=== PATIENT | female | born 1975 | race Caucasian/White ===

== ENCOUNTER → 2018-09-11 07:31 | Outpatient (CLI) | payer SELFPAY ==
--- NOTE | 2018-09-11 07:35 | BI_ITS ---
MAMMOGRAPHY - BILATERAL SCREENING REASON FOR EXAM: Female, 42 years old. Routine annual screening examination. PERTINENT HISTORY: Non-contributory. TECHNIQUE: Digital bilateral breast francine (3D mammographic acquisition) in the CC and MLO projections. 2-D mediolateral oblique (MLO) and craniocaudad (CC) views of both breasts were obtained. CAD: Full Field Digital Mammography with Computer Added Detection was performed. COMPARISON: Comparison is made with prior outside examination dated November 14, 2011. FINDINGS: Breast Composition: The breasts are extremely dense, which lowers the sensitivity of mammography. There are no dominant masses or suspicious calcifications. Stable small right axillary lymph nodes. No other significant abnormalities are identified. There has been no significant change since the prior study. BI/SCREEN MAMM (CAD) W/FRANCINE BILAT IMPRESSION: Stable bilateral screening mammogram. Yearly follow-up mammogram recommended. (A) ASSESSMENT CATEGORY: BIRADS Category 2: Benign. A letter regarding these results will be sent to the patient by the facility within 30 days. Approximately 10% of breast cancers are not detected by mammography. A normal mammogram should not delay biopsy of a clinically suspicious abnormality. [id number] Electronically Signed: Aguila Harris, at 13:22 EDT , Service support ,
== END ==
PROVIDERS: Family Provider Family Medicine; PCP Family Medicine; Referring Provider Obstetrics & Gynecology Gynecology; Visit Provider Obstetrics & Gynecology Gynecology
DX: Z12.31 Encounter for screening mammogram for malignant neoplasm of breast (principal)
CPT/HCPCS: 77063; 77067

== ENCOUNTER → 2020-06-21 12:01 | Outpatient (CLI) | payer OTHER, SELFPAY ==
[2020-06-21 15:46] LABS: ALB/GLOB Ratio 1.1 RATIO (0.9-2.4); AST(SGOT) 20 U/L (15-37); Alanine Aminotransfer ALT/SGPT 30 U/L (13-56); Albumin, Serum 3.8 g/dL (3.2-5.0); Alkaline Phosphatase 73 U/L (45-117); Anion Gap 6 (5-15); BUN 13 mg/dL (7-18); BUN/Creat Ratio 18.3 RATIO (10-20); Calcium,Total 8.9 mg/dL (8.5-10.1); Chloride 103 mmol/L (98-107); Creatinine, Serum 0.71 mg/dL (0.55-1.02); EST Glomerular Filtration Rate 94 mL/min (>60); Est Glom Filt Rate - Afr Amer 114 mL/min (>60); Follicle Stimulating Hormone 9.4 mIU/mL; Globulin 3.5 g/dL (2.2-4.2); Glucose 78 mg/dL (74-106); Luteinizing Hormone 8.7 mIU/mL; Potassium 3.7 mmol/L (3.5-5.1); Protein, Total 7.3 g/dL (6.4-8.2); Sodium Level 136 mmol/L (136-145); Thyroid Stim Hormone (TSH) 1.28 uIU/mL (0.358-3.74)
== END ==
PROVIDERS: PCP Family Medicine; Visit Provider Family Medicine
DX: R53.81 Other malaise (principal); F41.9 Anxiety disorder, unspecified
CPT/HCPCS: 36415; 80053; 83001; 83002; 84443

== ENCOUNTER → 2020-11-19 08:37 | Outpatient (CLI) | payer OTHER, SELFPAY | PROVIDERS: PCP Family Medicine; Visit Provider Physician Assistant | DX: Z20.822 Contact with and (suspected) exposure to COVID-19 (principal) | CPT/HCPCS: 87635; U0005; U0003 ==

== ENCOUNTER → 2021-02-16 14:36 | Outpatient (CLI) | payer OTHER, SELFPAY ==
--- NOTE | 2021-02-16 14:39 | RAD_ITS ---
STUDY: X-RAY - RIGHT KNEE REASON FOR EXAM: Right knee pain. TECHNIQUE: 4 view(s) of the knee. COMPARISON: Radiograph report 09/15/2009. FINDINGS: Normal visualized distal femur. Normal visualized proximal tibia and fibula. Normal proximal tibiofibular articulation. Normal medial femorotibial compartment. Normal lateral femorotibial compartment. Normal patellofemoral articulation. There is very mild lateral subluxation of the patella. The soft tissue structures are unremarkable. RAD/Knee 4 or More Views IMPRESSION: Very mild lateral subluxation of the patella. Otherwise, unremarkable x-ray examination of the right knee. Electronically Signed: Wilman Lunsford MD at 14:21 EST Tel , Service support ,
--- NOTE | 2021-02-16 14:40 | RAD_ITS ---
STUDY: X-RAY - LUMBAR SPINE REASON FOR EXAM: Female, 45 years old. Back pain. TECHNIQUE: 4 view(s) of the lumbar spine were obtained. COMPARISON: 11/24/2011. FINDINGS: Normal lumbar lordosis. There is no substantial scoliosis. There is a normal alignment of the vertebrae. Mild diffuse facet sclerosis. Mild intervertebral disc space narrowing at L2-3, L3-4 and L5-S1 with small osteophytes, relatively unchanged from the prior study. The soft tissue structures are unremarkable. RAD/L/S Spine Min 4 Views IMPRESSION: Stable mild lumbar spondylosis. No acute abnormality, evidence of erosion or fusion. Electronically Signed: Willy Leonard MD at 11:36 EST , Service support ,
--- NOTE | 2021-02-16 14:42 | RAD_ITS ---
STUDY: X-RAY - LEFT KNEE REASON FOR EXAM: Left knee pain. TECHNIQUE: 4 view(s) of the knee. COMPARISON: Radiograph report 09/15/2009. FINDINGS: Normal visualized distal femur. Normal visualized proximal tibia and fibula. Normal proximal tibiofibular articulation. Normal medial femorotibial compartment. Normal lateral femorotibial compartment. Normal patellofemoral articulation. There is very mild lateral subluxation of the patella. The soft tissue structures are unremarkable. RAD/Knee 4 or More Views IMPRESSION: Very mild lateral subluxation of the patella. Otherwise, unremarkable x-ray examination of the left knee. Electronically Signed: Wilman Lunsford MD at 13:55 EST Tel , Service support ,
== END ==
PROVIDERS: PCP Family Medicine; Referring Provider Family Medicine; Visit Provider Family Medicine
DX: M25.561 Pain in right knee (principal); M25.562 Pain in left knee
CPT/HCPCS: 72110; 73564

== ENCOUNTER 2021-03-30 08:00 | Outpatient (RCR) | payer SELFPAY, OTHER ==
--- NOTE | 2021-03-02 09:30 | HP.PTEVAL_ITS ---
Patient's Visit Information SHANNON GOLDSTEIN is a 45 year old F referred to Physical Therapy by Dr. Chago Rose MD with a diagnosis of Bilateral Sublux Patella. Date of Evaluation: 03/02/21 Physical Therapist: Miroslava Arellano DPT - Visit Plan Frequency: 2-3x /Week Duration: 4 Weeks Plan: Focus on LE and core strength/stabilization. HEP Given IE: Quad set, SLR, 90/90 hamstring stretch, clams, bridge with ball - Subjective Patient reports that she has had knee pain for years but they are getting worse- and her back is bad- she has spondylolysis. The back pain is stable but she reports more pain. Both knees are bad but one is not worse than the other. Pain is located around the whole knee cap- she does have pain right hip pain and reports pulling a muscle- lots of walking on vacation this summer and has not been able to get rid of the pain- massage with Fadia a few times- it gets better then it comes right back. Worst: 7/10 Agg: going down stairs, or down a slope, compression, turning. Eases: Tramadol, heat, CBD cream, sitting still Best: 0/10. Describes the pain as shooting when she is doing things- achy when she is resting after- weather also changes things. Is not working out- is not lifting. Sleep: disturbed- ache gets really bad at night. Hamstrings are really tight- no specific position. Work: [employer] - she is up/down a lot- has other people lifting boxes for her. Can't run or jump. Has had recent x- rays or both knees and her back. PMHx: none Meds: Tramadol, Anti-Inflam, anxiety med - Objective Posture: FH, RS, can correct with verbal and tactile cues but does not maintain. Gait: decreased stance on the right LE with decreased heel/toe pattern. Stairs: asc recip with 1 HR- desc recip with poor control -1 HR. HR/TR: able without UE A. SLS: 20 sec then LOB.- increase muscle activation and pes planus. Sensation: WNL to gross touch bilateral LE. ROM: 0-130 degrees without pain. Strength: core: fair, Hip: 4/5 throughout, Knee: 4+/5, Ankle: 5/5. Poor Patellar Tracking bilateral. Flex: HS: severe, Gastroc: severe Solues: moderate. Palpation: obvious patellar tilting left>Right - Special Tests R Knee Dmitry - Meniscus: Negative R Knee Patellar Apprehension - PFS: Positive R Knee Patellar Grind - PFS: Positive L Knee Dmitry - Meniscus: Negative L Knee Patellar Apprehension - PFS: Positive L Knee Patellar Grind - PFS: Positive L Knee Medial Patellar Plica - Plica Syndrome: Positive - Balance/Special Test Scores Lower Extremity Functional Score: 31 - Goals Goal 1:: Patient will be I with HEP and progression Goal Time Frame: 4-6 Weeks Goal 2:: Patient will report no knee pain for 1 week Goal Time Frame: 4-6 Weeks Goal 3:: Patient will maintain proper posture t/o tx session to demo increased core s/s Goal Time Frame: 4-6 Weeks Goal 4:: Patient will ambulate >300 feet with a normalized gait pattern Goal Time Frame: 4-6 Weeks Goal 5:: Patient will asc/desc 8 stairs recip with 1 HR Goal Time Frame: 4-6 Weeks - Rehabilitation Potential Physical Therapy Diagnosis: Patient presents with hypomobility- she has decreased pain free ROM, LE and core strength/stabilization, flexibility and muscular endurance leading to poor patellar tracking and pain with ADL's Rehabilitation Potential: Good - Anticipated Interventions Patient/Client Instruction: Educate patient on: Benefits of Fitness Program Therapeutic Exercise to Include: Strength training, Endurance training, Balance training, Coordination, Agility training, Body mechanics, Postural training, Flexibilty training, Gait and locomotor training, Neuromotor development, Dynamic Lumbar Stabilization, Scapular Strength/Stabilization For the Purpose of:: To improve muscle performance and motor function TENS: Yes Cryotherapy (ice pack, ice massage): Yes Thermo therapy (hot pack): Yes Ultrasound (thermal/non thermal): Yes Thank you for the opportunity to evaluate your patient. For Medicare and Medicare HMO plans, please review the plan of care and approve it. It will need to be FAXED BACK to us at [phone] for Medicare purposes. For Medicare only, by signing this I certify the plan of care. Please let me know if there are questions or concerns regarding this plan of care. Physician Mayte lindo: Date:
--- NOTE | 2021-03-30 08:52 | HP.PTDCSUM ---
It has been my pleasure to treat SHANNON GOLDSTEIN referred by Dr. Chago Rose MD, with the diagnosis of Bilateral Sublux Patella for a total of 4 visit(s). Discharge Date: Please see the following information for a summary of their discharge status. Subjective: Patient reports that she has not been diligent at home so she is not seeing any big gains % Improvement: 25 Objective/Function: Patient was able to complete without incidence. Able to set up machines indep. Goal 1:: Patient will be I with HEP and progression Goal Progress: Goal Met Goal 2:: Patient will report no knee pain for 1 week Goal Progress: Not Progressing Goal 3:: Patient will maintain proper posture t/o tx session to demo increased core s/s Goal Progress: Not Progressing Goal 4:: Patient will ambulate >300 feet with a normalized gait pattern Goal Progress: Not Progressing Goal 5:: Patient will asc/desc 8 stairs recip with 1 HR Goal Progress: Not Progressing Plan: Discharge. Will continue HEP If there are questions or concerns regarding this patient's physical therapy, please feel free to call me at [phone]. Thank you for the referral of this patient. Sincerely, Miroslava Arellano, DPT Balance/Gait/Functional tests - Balance/Special Test Scores Lower Extremity Functional Score: 50
--- NOTE | 2021-08-24 10:44 | HP.PT.NRP ---
SHANNON RAJWINDER ALCARAZ TRISTON was seen in my office for initial evaluation on 03/02/21. The following Plan of Care was established for this patient: Initial Frequency: 2-3x /Week Initial Duration: 4 Weeks Patient/Client Instruction: Educate patient on: Benefits of Fitness Program Therapeutic Exercise to Include: Strength training, Endurance training, Balance training, Coordination, Agility training, Body mechanics, Postural training, Flexibilty training, Gait and locomotor training, Neuromotor development, Dynamic Lumbar Stabilization, Scapular Strength/Stabilization For the Purpose of:: To improve muscle performance and motor function TENS: Yes Cryotherapy (ice pack, ice massage): Yes Thermo therapy (hot pack): Yes Ultrasound (thermal/non thermal): Yes This patient was last seen in our office . Pertinent comments regarding their Physical therapy will appear below: Patient continues to perform HEP- appropriate to be d/c from PT at this time. At this point I will be discontinuing this patient from physical therapy. I would be happy to see this patient again in the future if found appropriate by the physician. Thank you! Miroslava Arellano DPT Balance/Gait/Functional tests - Balance/Special Test Scores Lower Extremity Functional Score: 50
== END 2021-03-30 19:00 | disposition home or self-care (01) ==
LOC: PT 08:00
PROVIDERS: PCP Family Medicine; Referring Provider Family Medicine; Visit Provider Family Medicine
DX: S83.104D Unspecified dislocation of right knee, subsequent encounter (principal); S83.102D Unspecified subluxation of left knee, subsequent encounter
CPT/HCPCS: 97110; 97162

== ENCOUNTER → 2022-01-23 | Outpatient (CLI) | payer OTHER, SELFPAY ==
[2022-01-23 15:26] LABS: Absolute Lymphocyte Count 3.26 X10^3/uL (0.83-4.51); Absolute Neutrophil Count 3.8 X10^3/uL (2.0-7.7); Basophil# 0.06 X10^3/uL; Basophil% 0.8 % (0-1); Eosinophil# 0.09 X10^3/uL; Eosinophils% 1.2 % (0-5); Hematocrit 42.2 % (37-47); Hemoglobin 14.3 g/dL (12.0-15.0); Lymphocyte # 3.26 X10^3/ul (0.83-4.51); Lymphocyte % 42.4 % (19-41); Mean Corp Hgb Conc 33.9 g/dL (32-36); Mean Corpuscular Hgb 30.4 pg (27.0-32.0); Mean Corpuscular Volume 89.8 fL (81-99); Mean Platelet Vol. 8.6 fl (6.2-12.0); Monocyte# 0.48 X10^3/uL; Monocyte% 6.2 % (0-10); NRBC Flagged by Analyzer 0 % (0-5); Neutrophil # 3.79 X10^3/uL (2.7-7.7); Neutrophil % 49.3 % (47-70); Platelet Count 404 K/mm3 (150-450); RBC Distribution Width CV 11.6 % (11.6-14.6); RBC Distribution Width SD 38.1 fl (35.1-43.9); White Blood Count 7.7 K/mm3 (4.4-11.0)
[2022-01-23 16:05] LABS: ALB/GLOB Ratio 1.3 RATIO (0.9-2.4); AST(SGOT) 16 U/L (15-37); Alanine Aminotransfer ALT/SGPT 26 U/L (13-56); Albumin, Serum 3.9 g/dL (3.2-5.0); Alkaline Phosphatase 73 U/L (45-117); Anion Gap 6 (5-15); BUN 9 mg/dL (7-18); BUN/Creat Ratio 12.3 RATIO (10-20); CRP < 2.90 mg/L (0.0-3.0); Calcium,Total 8.7 mg/dL (8.5-10.1); Chloride 106 mmol/L (98-107); Creatinine, Serum 0.73 mg/dL (0.55-1.02); EST Glomerular Filtration Rate 90 mL/min (>60); Est Glom Filt Rate - Afr Amer 109 mL/min (>60); Globulin 3.1 g/dL (2.2-4.2); Glucose 93 mg/dL (74-106); Lipase 113 U/L (73-393); Potassium 3.9 mmol/L (3.5-5.1); Sodium Level 140 mmol/L (136-145); Thyroid Stim Hormone (TSH) 2.11 uIU/mL (0.358-3.74)
[2022-01-25 17:02] LABS: Haptoglobin 99 mg/dL (42-296)
== END | disposition home or self-care (01) ==
PROVIDERS: PCP Family Medicine; Visit Provider Family Medicine
DX: F50.9 Eating disorder, unspecified (principal); R63.4 Abnormal weight loss; R10.814 Left lower quadrant abdominal tenderness
CPT/HCPCS: 36415; 80053; 83010; 83690; 84443; 85025; 86140

== ENCOUNTER 2022-03-21 06:38 | Day surgery (SDC) | payer OTHER, SELFPAY ==
[2022-03-21] VITALS (7 sets, daily range): BP systolic 96–110; BP diastolic 57–69; PULSE 65–75; RESP 14–18; TEMP 36.4–36.7; O2SAT 99–100; BMI 24.6
--- NOTE | 2022-03-21 06:49 | HP.PCM_ITS ---
History and Physical Date of Admission: 03/21/22 Visit Reasons:?UNEXPLAINED NAUSEA & WEIGHTLOSS Chief Complaint: Nausea and Weight Loss Instructional Developer Required: No Is patient in pain?: No Allergies No Known Allergies Allergy (Unverified 02/09/22 13:14) Medications bupropion HCl 300 mg 24 hr tablet, extended release 300 mg PO QAM 02/09/22 [History Confirmed 02/09/22] methylphenidate HCl 5 mg tablet 5 mg PO QAM 02/09/22 [History Confirmed 02/09/22] tramadol 50 mg tablet 50 mg PO BID 02/09/22 [History Confirmed 02/09/22] PFSH Medical History?(Updated 02/09/22 @ 13:09 by Aniyah Kirk) Encounter for screening for COVID-19 Nausea Weight loss Surgical History?(Updated 02/09/22 @ 13:10 by Aniyah Kirk) No history of previous surgery Family History?(Updated 02/09/22 @ 13:12 by Aniyah Kirk) Mother Arthritis OsteoporosisFather Cancer ?? ? Bladder Social History?(Updated 02/09/22 @ 13:12 by Aniyah Kirk) Smoking Status:? Never smoker alcohol intake:? never substance use type:? does not use HPI HPI HPI: 46-year-old female who is being referred by Dr. Ronn Molina for surgical consultation regarding unexplained nausea and weight loss.? A written compromise surgical consult recommendations will return to him.? Concern is that she has lost 15 to 20 pounds of weight in the past 6 months.? She is on chronic tramadol therapy.? Diminished appetite.? Recorded body weight was 137 pounds with a BMI of 24.6.? As of January 23, 2022 white blood cell count was 7.7 with a hemoglobin 14.3 hematocrit 42.2 platelet count 404,000.? Haptoglobin was normal at 99.? BUN is 9 creatinine 0.73 liver function tests were normal with a total protein of 7 and an albumin of 3.9.? C-reactive protein was normal.? Lipase was 113.? TSH 2.11. The patient notes a 20 pound weight loss over the past 6 months.? She thinks possibly its been due to stress.? She has been taking tramadol on an empty stomach.? She takes tramadol because of knee and back pain and that is been a chronic medication.? She gets nauseated intermittently.? She does drink some Coca-Cola to alleviate this.? She has not tried any antacids or any other rjpj-wma-unapgtm medications. She has not had any change in stool.? No bright red blood per rectum or melena.? No abdominal pain.? Just some indigestion to some food.? She has markedly decreased appetite to where food sounds good but then does not taste good or causes her to be nauseated.? No fever chills or sweats. She does have a dog.? Apparently frequently check for ticks.? She does not have any known exposure for Lyme disease. Family history negative for colon cancer.? Her father did have bladder cancer. The patient is not a tobacco user.? Currently with the weight loss she has had essentially no alcohol use. ROS General General: Yes weight change; No appetite, fatigue, colon cancer, breast cancer or weakness Additional Details: weight loss; 20lbs in last 6 mos per pt HEENT HEENT: No difficulty swallowing, eye injury, eye surgery, swollen glands or hoarseness Endo Endocrine: No thyroid disease, diabetes mellitus, thyroid cancer, Hair loss, heat intolerance or cold intolerance Skin Skin: No rash or changing moles Breast Breast: No left breast lump, right breast lump, nipple discharge, breast pain, abnormal mammogram, abnormal US or breast enlargement Musc Musculoskeletal: Yes back problems and arthritis; No rheumatoid arthritis, gout or joint pain Cardio Cardiovascular: No murmur, pacemaker, heart disease, atrial fibrillation, high blood pressure, heart attack, heart stent, palpitations, shortness of breat with exertion or chest pain Psych Psychiatric: Yes anxiety; No depression or hearing voices Resp Respiratory: No shortness of breath, No sleep apnea, No cough, No COPD, No asthma, No emphysema and No wheezing Gastro Gastrointestinal: Yes abdominal pain, Yes nausea or vomiting, No diarrhea, No constipation, No blood in stool, No acid reflux, No hemorrhoids, No ulcers, No gallbladder problem and No black,tarry stools Additional Details: nausea last 6 wks Kasi Hematologic: No blood thinners, No blood disorders, No bleeding, No anemia and No blood clots Neuro Neurologic: No system reviewed and no additional complaints, except as documented, No as per HPI, No abnormal gait, No abnormal hearing, No abnormal movements, No abnormal speech, No behavioral changes, No burning sensations, No confusion, No convulsions, No disequilibrium, No dizziness, No localized weakness, No frequent falls, No headache(s), No lack of coordination, No loss of vision, No memory loss, No numbness, No other visual disturbances, No radicular pain, No restless legs, No sensory deficit, No syncope, No tingling, No tremor(s), No weakness and No other Exam Const General: cooperative, healthy appearing, comfortable and no acute distress [facility] Head: normal to inspection Eyes General: appearance normal, both eyes and all related structures Neck Neck: normal visual inspection Chest Chest palpation & inspection: normal inspection of the chest Resp Effort & Inspection: normal respiratory effort Auscultation: clear to auscultation bilaterally Cardio Rate: regular rate Rhythm: regular rhythm GI Inspection: normal to inspection Palpation: soft and no hepatosplenomegaly Auscultation: normal bowel sounds Musc Cervical Spine: normal cervical lordosis Skin General: no rashes or lesions noted Neuro General: patient alert, patient awake and patient oriented x3 Extrem General: no calf tenderness Psych Appearance: grossly normal Assessment and Plan Assessment and Plan (1) Nausea: ?Status:?Acute (2) Weight loss: ?Status:?Acute Plan Patient almost is getting to the point where she is having food fear or a nausea response to thinking or eating food.? She has not been taking any aypp-huq-lnentwe medications to assist other than the antiemetic effects of Coca-Cola does assist.? She has continued to take tramadol for long-term knee and back pain.? Her clinical exam is quite unremarkable quadrant unremarkable abdominal exam.? No unusual exposures to think of infectious disease and the patient actually notes that she does not really feel fatigued I recommended the patient a esophagogastroduodenoscopy because of the intractable nausea.? Biopsies will be pursued if indicated.? Because of the weight loss she has never had a colonoscopy and clearly the etiology to her lack of appetite has been undetermined.? I recommend adding a colonoscopy with possible biopsy or polypectomy as well. She has had an opportunity to ask and have questions answered.? If this is not remarkable or revealing to a diagnosis then I would recommend a contrasted abdominal pelvic CT scan.? If that were unremarkable then I might be out of surgical options we will schedule the endoscopy procedures first and then wait findings and then consider further evaluation as indicated. I appreciate the opportunity of assisting with her surgical care Copy: Dr. Ronn Adames M.D., F.A.C.S I have examined the patient and the H&P has been reviewed. There are no clinical changes since date of exam. Ankur Adames M.D., F.A.C.S.
[2022-03-21 07:14] LABS: Internal QC Validated? YES +Cl - CLEAR BKGD; Pregnancy, Urine Negative Negative
[2022-03-21] MEDS: Lactated Ringers 1,000 ML 15 ML IV (07:26)
--- NOTE | 2022-03-21 07:45 | IMM_PTH ---
PATIENT: SHANNON DEL ANGEL LOC: EN U#:[id number] AGE/SX: 46/F ROOM: RE03/21/[address]: Dr. Ankur Adames MD : 1975 BED: DIS: 03/21/2022 SPEC #: [id number] RECD: 03/22/22 07:35 STATUS: LUIS DANIEL REQ #: [id number] STEPHAN: 03/21/22 07:[address]: Ankur Adames DEPT: IMMUNOHISTOCHEMISTRY RECD BY: Amparo Lawson ENTERED: 03/22/22 07:35 SP TYPE: IMMUNO OTHR DR: Dr. Ronn Molina MD Tissues: B - Stomach, NOS Procedures: H Pylori (initial) PHYSICIAN & INSTITUTION [place] [id number] SPECIMEN INFORMATION: Tissue Source: B - Antrum Clinical Info: Nausea, weight loss Specimen Number: [id number] CPT code: 24829 METHODOLOGY: Deparaffinized sections of prefer/formalin-fixed tissue or PAP/DQ stained slides are incubated with monoclonal/polyclonal antibodies/oligonucleotide probes. Localization is made via biotin free immunoperoxidase method. Appropriate controls are performed and reacted as expected. Results on target cell population are indicated in the following table: RESULTS: ANTIBODY / CLONE RESULT Block B H Pylori (polyclonal) negative These tests were developed and their performance characteristics determined by [facility]. They may not have been cleared or approved by the U.S. Food and Drug Administration. The FDA has determined that such clearance or approval is not necessary. The above immunohistochemical/dualISH markers are ordered and reviewed by the Pathologist. INTERPRETATION: B. Antrum, biopsy: Negative for Helicobacter pylori organisms. SJ:varinder 03/22/2022
--- NOTE | 2022-03-21 07:45 | EGD_PTH ---
PATIENT: SHANNON DEL ANGEL LOC: EN U#:[id number] AGE/SX: 46/F ROOM: RE03/21/[address]: Dr. Ankur Adames MD : 1975 BED: DIS: 03/21/2022 SPEC #: [id number] RECD: 03/21/22 09:54 STATUS: LUIS DANIEL REDarshan #: [id number] STEPHAN: 03/21/22 07:[address]: Ankur Adames DEPT: SURGICAL PATHOLOGY RECD BY: Lyssa Mosqueda ENTERED: 03/21/22 11:05 SP TYPE: EGD BIOPSY OT DR: Dr. Ronn Molina MD Tissues: A - Duodenum, NOS B - Gastric mucous membrane C - Esophagus, NOS D - Esophagus, NOS E - Rectum, NOS Procedures: Surgery Specimen Level IV HEADER OPERATION: Colonoscopy, EGD, biopsy ([facility]) PRE-OP DIAGNOSIS: Nausea, weight loss TISSUE SUBMITTED: A ? Duodenum biopsy, B ? Antrum for H. pylori and path, C ? Distal esophagus biopsy, D ? Mid esophagus biopsy, E ? Proximal rectum polyp MICROSCOPIC DIAGNOSIS A. Duodenum, biopsy: A fragment of duodenal mucosa, no pathologic diagnosis. B. Antrum, biopsy: Mild gastritis. See microscopic description and comment. C. Distal esophagus, biopsy: A fragment of squamous epithelium with mild chronic inflammation. D. Mid esophagus, biopsy: Fragments of benign squamous epithelium. E. Proximal rectum polyp, polypectomy: Tubular adenoma. SJ:varinder 03/22/2022 COMMENT B. The results of immunohistochemistry for Helicobacter pylori will be reported separately ([id number]). MICROSCOPIC DESCRIPTION Slides are reviewed. B. The specimen shows fragments of gastric mucosa with chronic inflammatory cell infiltrates in the lamina propria consisting of lymphocytes and plasma cells, consistent with mild chronic gastritis. GROSS DESCRIPTION A - Received in fixative is one container labeled with the patient's name and designated duodenum. The specimen consists of one irregular fragment of light bella soft tissue that measures 0.4 x 0.3 x 0.1 cm. The specimen is totally submitted in one cassette. B - Received in fixative is one container labeled with the patient's name and designated antrum biopsy. The specimen consists of two irregular fragments of light bella soft tissue that in aggregate measure 0.4 x 0.3 x 0.1 cm. The specimen is totally submitted in one cassette. C - Received in fixative is one container labeled with the patient's name and designated distal esophagus. The specimen consists of one irregular fragment of light bella soft tissue that measures 0.5 x 0.3 x 0.1 cm. The specimen is totally submitted in one cassette. D - Received in fixative is one container labeled with the patient's name and designated mid esophagus. The specimen consists of multiple irregular fragments of light bella soft tissue that in aggregate measure 1 x 0.3 x 0.1 cm. The specimen is totally submitted in one cassette. E - Received in fixative is one container labeled with the patient's name and designated proximal rectum polyp. The specimen consists of a bella-pink polyp measuring 1.2 x 1 x 0.6 cm. The presumed base is inked. The polyp is bisected and submitted entirely in one cassette. / SJ:rg 03/21/2021 TC:1 CPT: 52163 x5
--- NOTE | 2022-03-21 08:29 | OP.EGD_ITS ---
Patient Name: Aide Mckeon Procedure Date: 03/21/2022 7:55 AM Date of : 1975 Age: 46 Procedure: Upper GI endoscopy Indications: Nausea, Weight loss Providers: Ankur Adames MD Referring MD: Ankur Adames MD Medicines: See the Anesthesia note for documentation of the administered medications Complications: No immediate complications. Procedure: Pre-Anesthesia Assessment: - Prior to the procedure, a History and Physical was performed, and patient medications and allergies were reviewed. The patient's tolerance of previous anesthesia was also reviewed. The risks and benefits of the procedure and the sedation options and risks were discussed with the patient. All questions were answered, and informed consent was obtained. Prior Anticoagulants: The patient has taken no previous anticoagulant or antiplatelet agents. ASA Grade Assessment: II - A patient with mild systemic disease. After reviewing the risks and benefits, the patient was deemed in satisfactory condition to undergo the procedure. After obtaining informed consent, the endoscope was passed under direct vision. Throughout the procedure, the patient's blood pressure, pulse, and oxygen saturations were monitored continuously. The colonoscope was introduced through the mouth, and advanced to the fourth part of duodenum. The upper GI endoscopy was accomplished without difficulty. The patient tolerated the procedure well. Scope In: 7:59:32 AM Scope Out: 8:07:36 AM Total Procedure Duration Time 0 hours 8 minutes 4 seconds Findings: Diffuse mild mucosal changes characterized by discoloration were found in the entire esophagus. Biopsies were taken with a cold forceps for histology. Diffuse mildly erythematous mucosa without bleeding was found in the gastric antrum. Biopsies were taken with a cold forceps for histology. The examined duodenum was normal. Biopsies were taken with a cold forceps for histology. The examined jejunum was normal. Impression: - Discolored mucosa in the esophagus. Biopsied mid and distally. - Erythematous mucosa in the antrum. Biopsied. - Normal examined duodenum. Biopsied. - Normal examined jejunum. Recommendation: - Await pathology results. - Discharge patient to home. - Resume previous diet. - Continue present medications. - Telephone my office for pathology results in 1 week. Findings do not correlate with intractable nausea and weight loss Procedure Code(s): --- Professional --- 15275, Esophagogastroduodenoscopy, flexible, transoral; with biopsy, single or multiple Diagnosis Code(s): --- Professional --- K22.8, Other specified diseases of esophagus K31.89, Other diseases of stomach and duodenum R11.0, Nausea R63.4, Abnormal weight loss CPT copyright 2017 [employer]. All rights reserved. The codes documented in this report are preliminary and upon teletype clerk review may be revised to meet current compliance requirements. Ankur Adames MD 03/21/2022 8:28:48 AM This report has been signed electronically. Number of Addenda: 0 Note Initiated On: 03/21/2022 7:55 AM
--- NOTE | 2022-03-21 08:29 | OP.CCLET_ITS ---
03/21/2022 Ronn Molina [address] [place] [address] Re : Upper GI endoscopy procedure for Aide Mckeon Dear Dr. Molina This procedure was performed on Monday, March 21, 2022. My impressions and recommendations are as follows: Impressions : - Discolored mucosa in the esophagus. Biopsied mid and distally. - Erythematous mucosa in the antrum. Biopsied. - Normal examined duodenum. Biopsied. - Normal examined jejunum. Recommendations : - Await pathology results. - Discharge patient to home. - Resume previous diet. - Continue present medications. - Telephone my office for pathology results in 1 week. Findings do not correlate with intractable nausea and weight loss My findings are described in the full procedure note, which is enclosed. If I can be of further assistance, please feel free to contact me at Doctor phone number(s): Work: . Sincerely, Ankur Adames MD 03/21/2022 8:28:48 AM This report has been signed electronically.
--- NOTE | 2022-03-21 08:35 | OP.COLON_ITS ---
Patient Name: Aide Mckeon Procedure Date: 03/21/2022 8:07 AM Date of : 1975 Age: 46 Procedure: Colonoscopy Indications: Weight loss Providers: Ankur Adames MD Referring MD: Ankur Adames MD Medicines: See the Anesthesia note for documentation of the administered medications Patient Profile: Last Colonoscopy: none. The patient's first colonoscopy is today. Complications: No immediate complications. Procedure: Pre-Anesthesia Assessment: - Prior to the procedure, a History and Physical was performed, and patient medications and allergies were reviewed. The patient's tolerance of previous anesthesia was also reviewed. The risks and benefits of the procedure and the sedation options and risks were discussed with the patient. All questions were answered, and informed consent was obtained. Prior Anticoagulants: The patient has taken no previous anticoagulant or antiplatelet agents. ASA Grade Assessment: II - A patient with mild systemic disease. After reviewing the risks and benefits, the patient was deemed in satisfactory condition to undergo the procedure. After I obtained informed consent, the scope was passed under direct vision. Throughout the procedure, the patient's blood pressure, pulse, and oxygen saturations were monitored continuously. The colonoscope was introduced through the anus and advanced to the cecum, identified by appendiceal orifice and ileocecal valve. The colonoscopy was performed without difficulty. The patient tolerated the procedure well. The quality of the bowel preparation was good. The ileocecal valve and the appendiceal orifice were photographed. Scope In: 8:09:13 AM Scope Withdrawal Time 0 hours 10 minutes 55 seconds Scope Out: 8:22:43 AM Total Procedure Duration Time 0 hours 13 minutes 30 seconds Findings: The perianal and digital rectal examinations were normal. A 10 mm polyp was found in the rectum. The polyp was semi-pedunculated. The polyp was removed with a hot snare. Resection and retrieval were complete. For location marking, one hemostatic clip was successfully placed. There was no bleeding at the end of the procedure. The exam was otherwise normal throughout the examined colon. Impression: - One 10 mm polyp in the rectum, removed with a hot snare. Resected and retrieved. Clip was placed. Recommendation: - Discharge patient to home. - Resume previous diet. - Continue present medications. - Repeat colonoscopy in 5 years for surveillance based on pathology results. - Telephone my office for pathology results in 1 week. Findings do not correlate with nausea and weight loss Procedure Code(s): --- Professional --- 75359, Colonoscopy, flexible; with removal of tumor(s), polyp(s), or other lesion(s) by snare technique 11940, Unlisted procedure, rectum Diagnosis Code(s): --- Professional --- K62.1, Rectal polyp R63.4, Abnormal weight loss CPT copyright 2017 [employer]. All rights reserved. The codes documented in this report are preliminary and upon auditing coder review may be revised to meet current compliance requirements. Ankur Adames MD 03/21/2022 8:35:05 AM This report has been signed electronically. Number of Addenda: 0 Note Initiated On: 03/21/2022 8:07 AM
--- NOTE | 2022-03-21 08:36 | OP.CCLET_ITS ---
03/21/2022 Ronn Molina [address] [place] [address] Re : Colonoscopy procedure for Aide Francistcher Dear Dr. Molina This procedure was performed on Monday, March 21, 2022. My impressions and recommendations are as follows: Impressions : - One 10 mm polyp in the rectum, removed with a hot snare. Resected and retrieved. Clip was placed. Recommendations : - Discharge patient to home. - Resume previous diet. - Continue present medications. - Repeat colonoscopy in 5 years for surveillance based on pathology results. - Telephone my office for pathology results in 1 week. Findings do not correlate with nausea and weight loss My findings are described in the full procedure note, which is enclosed. If I can be of further assistance, please feel free to contact me at Doctor phone number(s): Work: . Sincerely, Ankur Adames MD 03/21/2022 8:35:05 AM This report has been signed electronically.
== END 2022-03-21 09:11 | disposition home or self-care (01) ==
LOC: EN 06:47 → AC 06:48
PROVIDERS: Anesthesiology; PCP Family Medicine; Referring Provider Surgery; Visit Provider Surgery
PROC: 0DJD8ZZ Inspection of Lower Intestinal Tract, Via Natural or Artificial Opening Endoscopic (ICD-10-PCS; CPT 45378; principal; 2022-03-21 07:40)
DX: K29.70 Gastritis, unspecified, without bleeding (principal); R11.0 Nausea; Z79.891 Long term (current) use of opiate analgesic; Z90.49 Acquired absence of other specified parts of digestive tract; M54.9 Dorsalgia, unspecified; K62.1 Rectal polyp; K31.89 Other diseases of stomach and duodenum; R63.4 Abnormal weight loss; K22.89 Other specified disease of esophagus
CPT/HCPCS: 43239; 45385; 81025; 88305; 88342; J7120; J2405

== ENCOUNTER → 2022-04-03 | Outpatient (CLI) | payer OTHER, SELFPAY ==
--- NOTE | 2022-04-03 13:29 | CT_ITS ---
STUDY: CT ABDOMEN AND PELVIS WITH CONTRAST REASON FOR EXAM: Female, 46 years old. Nausea, unexplained weight loss. Patient lost 20 pounds over the past 6 months. RADIATION DOSAGE (If Supplied By Facility): CTDIvol = ( 14.66 ) mGy, DLP = ( 629.86 ) mGycm TECHNIQUE: Transaxial images were obtained from the dome of the diaphragm to the symphysis pubis with oral contrast. Oral and amp; IV Readi-CAT and amp; 100mL Isovue-300 was administered. Sagittal and coronal images were reconstructed. Individualized dose optimization techniques were used for this CT. COMPARISON: None. FINDINGS: The visualized lung bases are unremarkable. The visualized portions of the heart are within normal limits. There is hepatomegaly with diffuse hepatic enlargement. There are multiple gallstones. Normal spleen. Normal pancreas. Normal bilateral adrenal glands. Normal right kidney. Normal left kidney. Normal visualized stomach. Normal small intestine. Moderate amount of fecal material seen throughout the colon more prominent in the right hemicolon. The appendix is visualized and appears normal. Normal abdominal aorta. Normal inferior vena cava. Normal retroperitoneum. Normal urinary bladder. There is a 2.4 cm x 2.2 cm cyst in the left ovary. Nabothian cyst is seen in the uterine cervix. Findings suggestive of a 1.9 cm x 1.6 cm fundal uterine fibroid. Normal abdominal wall. Grade 1 anterior listhesis of L5 on S1 with spondylolysis of the pars intraarticularis of the L5 vertebrae. CT/Abdomen/Pelvis WITH Contrast IMPRESSION: Multiple gallstones. Hepatomegaly. Left ovarian cyst measuring 2.4 cm x 2.2 cm. Electronically Signed: Aguila Harris MD at 14:17 EST ,
== END | disposition home or self-care (01) ==
PROVIDERS: PCP Family Medicine; Referring Provider Surgery; Visit Provider Surgery
DX: K80.20 Calculus of gallbladder without cholecystitis without obstruction (principal); R16.0 Hepatomegaly, not elsewhere classified; M43.17 Spondylolisthesis, lumbosacral region; N83.202 Unspecified ovarian cyst, left side; R11.0 Nausea; R63.4 Abnormal weight loss
CPT/HCPCS: 74177; Q9967

== ENCOUNTER 2022-04-11 08:58 | Day surgery (SDC) | payer OTHER, SELFPAY ==
--- NOTE | 2022-04-10 08:19 | EKG12_ITS ---
Test Reason : PRE-OP Blood Pressure : / mmHG Vent. Rate : 063 BPM Atrial Rate : 063 BPM P-R Int : 148 ms QRS Dur : 078 ms QT Int : 404 ms P-R-T Axes : 063 045 050 degrees QTc Int : 413 ms Normal sinus rhythm Normal ECG Confirmed by SERGIO SMITH, KAYCEE ([id number]), social media editor IDA MARX ([id number]) on 04/12/2022 2:07:45 PM Referred By: Ankur Adames Confirmed By:KAYCEE HILL MD
[2022-04-10 09:14] LABS: Hematocrit 40.3 % (37-47); Hemoglobin 13.5 g/dL (12.0-15.0); Mean Corp Hgb Conc 33.5 g/dL (32-36); Mean Corpuscular Hgb 29.8 pg (27.0-32.0); Mean Platelet Vol. 8.5 fl (6.2-12.0); Platelet Count 350 K/mm3 (150-450); RBC Distribution Width CV 12.3 % (11.6-14.6); RBC Distribution Width SD 40.2 fl (35.1-43.9); Red Blood Count 4.53 M/mm3 (4.2-5.4); White Blood Count 5.4 K/mm3 (4.4-11.0)
[2022-04-10 09:34] LABS: Anion Gap 4 (5-15); BUN 6 mg/dL (7-18); BUN/Creat Ratio 8.1 RATIO (10-20); Calcium,Total 8.6 mg/dL (8.5-10.1); Chloride 109 mmol/L (98-107); Creatinine, Serum 0.74 mg/dL (0.55-1.02); EST Glomerular Filtration Rate 89 mL/min (>60); Est Glom Filt Rate - Afr Amer 107 mL/min (>60); Glucose 109 mg/dL (74-106); Potassium 4.1 mmol/L (3.5-5.1); Sodium Level 141 mmol/L (136-145)
[2022-04-11] VITALS (10 sets, daily range): BP systolic 115–157; BP diastolic 63–84; PULSE 55–84; RESP 16–18; TEMP 36.3–36.9; O2SAT 95–100; BMI 25.2
[2022-04-11] MEDS: Lactated Ringers 1,000 ML 15 ML IV (09:10)
--- NOTE | 2022-04-11 10:10 | RAD_ITS ---
STUDY: INTRAOPERATIVE CHOLANGIOGRAM. REASON FOR EXAM: Female, 46 years old. Laparoscopic cholecystectomy. FLUOROSCOPY TIME (if supplied): ( 22.4 seconds ) minutes/seconds. A single loop of 90 images were submitted. TECHNIQUE: An intraoperative cholangiogram was performed by the surgeon. Imaging was submitted. COMPARISON: None. FINDINGS: The intra and extrahepatic biliary ducts are unremarkable. No intraluminal filling defect is seen. There is free flow of contrast into the duodenum. RAD/Cholangiogram/ O R,Initial IMPRESSION: Unremarkable intraoperative cholangiogram. Electronically Signed: Aguila Harris MD at 15:36 EST ,
--- NOTE | 2022-04-11 11:02 | HP.PCM_ITS ---
History and Physical Date of Admission: 04/11/22 No Known Allergies Allergy (Verified 04/05/22 13:03) Medications bupropion HCl 300 mg 24 hr tablet, extended release 300 mg PO QAM 02/09/22 [History Confirmed 04/05/22] methylphenidate HCl 5 mg tablet 5 mg PO QAM 02/09/22 [History Confirmed 04/05/22] tramadol 50 mg tablet 50 mg PO BID 02/09/22 [History Confirmed 04/05/22] PFSH Medical History?(Updated 04/05/22 @ 05:[address] Ankur Adames MD) Anxiety Encounter for screening for COVID-19 Nausea Non-smoker Wears glasses Weight loss Surgical History? No history of previous surgery Family History?(Updated 02/09/22 @ 13:12 by Aniyah Kirk) Mother Arthritis OsteoporosisFather Cancer ?? ? Bladder Social History?(Updated 02/09/22 @ 13:12 by Aniyah Kirk) Smoking Status:? Never smoker alcohol intake:? never substance use type:? does not use HPI HPI HPI: 46-year-old female.? She presented to me with unexplained nausea and weight loss. 46-year-old female who is being referred by Dr. Ronn Molina for surgical consultation regarding unexplained nausea and weight loss.? A written compromise surgical consult recommendations will return to him.? Concern is that she has l ost 15 to 20 pounds of weight in the past 6 months.? She is on chronic tramadol therapy.? Diminished appetite.? Recorded body weight was 137 pounds with a BMI of 24.6.? As of January 23, 2022 white blood cell count was 7.7 with a hemoglobin 14.3 hematocrit 42.2 platelet count 404,000.? Haptoglobin was normal at 99.? BUN is 9 creatinine 0.73 liver function tests were normal with a total protein of 7 and an albumin of 3.9.? C-reactive protein was normal.? Lipase was 113.? TSH 2.11. The patient notes a 20 pound weight loss over the past 6 months.? She thinks possibly its been due to stress.? She has been taking tramadol on an empty stomach.? She takes tramadol because of knee and back pain and that is been a chronic medication.? She gets nauseated intermittently.? She does drink some Coca-Cola to alleviate this.? She has not tried any antacids or any other xwwu-hyf-lbagfnk medications On March 21, 2022 I performed a combined esophagogastroduodenoscopy and colonoscopy.? I thought the mucosa of the esophagus appeared slightly discolored.? There is some erythema of the antrum.? These findings did not seem to correlate with the patient's pain.? Pathology demonstrated normal duodenum.? Mild gastritis.? Mild chronic distal esophagitis.? Unremarkable midesophagus.? H. pylori was negative.? The colonoscopy demonstrated a 10 mm polyp in the rectum which was semipedunculated removed with a hot snare and on pathology was a tubular adenoma.? This was also not felt to be the source of her discomfort On April 03, [address] of the abdomen pelvis was obtained.? I have personally reviewed those images.? This demonstrates multiple gallstones and hepatomegaly.? There is an incidental 2.4 cm left ovarian cyst.? It is because of the gallbladder finding that I have asked to return for ongoing surgical consultation.? It is of note that those films also demonstrate significant mount of fecal loading particularly of the cecum ascending and transverse colon.? Moreover I believe that there appears to be some thickening of the gallbladder wall. April 03, 2022 STUDY:? CT ABDOMEN AND PELVIS WITH CONTRAST REASON FOR EXAM: ? Female, 46 years old.? Nausea, unexplained weight loss. Patient lost 20 pounds over the past 6 months. RADIATION DOSAGE (If Supplied By Facility):? CTDIvol = ( 14.66 ) mGy, DLP = ( 629.86 ) mGycm TECHNIQUE: ? Transaxial images were obtained from the dome of the diaphragm to the symphysis pubis with oral contrast. Oral? and amp; IV Readi-CAT? and amp; 100mL Isovue-300 was administered.? Sagittal and coronal images were reconstructed. Individualized dose optimization techniques were used for this CT. COMPARISON: ? None. FINDINGS: The visualized lung bases are unremarkable.? The visualized portions of the heart are within normal limits. There is hepatomegaly with diffuse hepatic enlargement.? There are multiple gallstones.? Normal spleen.? Normal pancreas. Normal bilateral adrenal glands. Normal right kidney.? Normal left kidney. Normal visualized stomach.? Normal small intestine.? Moderate amount of fecal material seen throughout the colon more prominent in the right hemicolon.? The appendix is visualized and appears normal. Normal abdominal aorta.? Normal inferior vena cava.? Normal retroperitoneum. Normal urinary bladder.? There is a 2.4 cm x 2.2 cm cyst in the left ovary. Nabothian cyst is seen in the uterine cervix.? Findings suggestive of a 1.9 cm x 1.6 cm fundal uterine fibroid. Normal abdominal wall.? Grade 1 anterior listhesis of L5 on S1 with spondylolysis of the pars intraarticularis of the L5 vertebrae. CT/Abdomen/Pelvis WITH Contrast IMPRESSION: Multiple gallstones.? Hepatomegaly. Left ovarian cyst measuring 2.4 cm x 2.2 cm. ROS General General: Yes weight change; No appetite, fatigue, colon cancer, breast cancer or weakness Additional Details: weight loss; 20lbs in last 6 mos per pt HEENT HEENT: No difficulty swallowing, eye injury, eye surgery, swollen glands or hoarseness Endo Endocrine: No thyroid disease, diabetes mellitus, thyroid cancer, Hair loss, heat intolerance or cold intolerance Skin Skin: No rash or changing moles Breast Breast: No left breast lump, right breast lump, nipple discharge, breast pain, abnormal mammogram, abnormal US or breast enlargement Musc Musculoskeletal: Yes back problems and arthritis; No rheumatoid arthritis, gout or joint pain Cardio Cardiovascular: No murmur, pacemaker, heart disease, atrial fibrillation, high blood pressure, heart attack, heart stent, palpitations, shortness of breat with exertion or chest pain Psych Psychiatric: Yes anxiety; No depression or hearing voices Resp Respiratory: No shortness of breath, No sleep apnea, No cough, No COPD, No asthma, No emphysema and No wheezing Gastro Gastrointestinal: Yes abdominal pain, Yes nausea or vomiting, No diarrhea, No c onstipation, No blood in stool, No acid reflux, No hemorrhoids, No ulcers, No gallbladder problem and No black,tarry stools Additional Details: nausea last 6 wks Kasi Hematologic: No blood thinners, No blood disorders, No bleeding, No anemia and No blood clots Neuro Neurologic: No system reviewed and no additional complaints, except as documented, No as per HPI, No abnormal gait, No abnormal hearing, No abnormal movements, No abnormal speech, No behavioral changes, No burning sensations, No confusion, No convulsions, No disequilibrium, No dizziness, No localized weakness, No frequent falls, No headache(s), No lack of coordination, No loss of vision, No memory loss, No numbness, No other visual disturbances, No radicular pain, No restless legs, No sensory deficit, No syncope, No tingling, No tremor(s), No weakness and No other Exam Const General: cooperative, comfortable and no acute distress HENMT Head: normal to inspection Eyes General: appearance normal, both eyes and all related structures Neck Neck: normal visual inspection Resp Effort & Inspection: normal respiratory effort Auscultation: clear to auscultation bilaterally Cardio Rate: regular rate Rhythm: regular rhythm GI Palpation: soft and no hepatosplenomegaly Auscultation: normal bowel sounds Musc Cervical Spine: normal cervical lordosis Skin General: no rashes or lesions noted Neuro General: patient alert, patient awake and patient oriented x3 Extrem General: no calf tenderness Psych Appearance: grossly normal Assessment and Plan Assessment and Plan (1) Unexplained weight loss: ?Status:?Acute (2) Nausea: ?Status:?Acute (3) Weight loss: ?Status:?Acute (4) Cholelithiasis with chronic cholecystitis: ?Status:?Chronic ?Plan: The patient presents for a consultative appointment.? I am suspicious that her nausea and potentially weight loss as well is related to chronic cholecystitis cholelithiasis.? As noted above I believe that there is some degree of gallbladder wall thickening on the images.? The upper and lower endoscopy did not have findings that would correlate with her presentation.? I am recommending to her laparoscopic cholecystectomy with selective cholangiography and I have discussed in detail the technique, benefit, risk of alternatives.? She does have larger stones present.? She has had an opportunity to ask and have questions answered.? At this point she is interested in scheduling and proceeding as noted.? I appreciate the opportunity of assisting with her surgical care. Copy: Dr. Ronn Adames M.D., Aaron. I have examined the patient and the H&P has been reviewed. There are no clinical changes since date of exam. Ankur Adames M.D., Adry.[email or web address].DavidS.
--- NOTE | 2022-04-11 11:02 | DCINST_ITS ---
Discharge Instructions Procedure General Surgery Diet Discharge Diet: Light diet - advance as tolerated (if you have questions about your diet instructions, please talk to you doctor.) Activity Discharge Activity: May Not Drive (for 3-5 days or while taking narcotic pain medicine.) May shower in (days): 1 Lifting Restrictions: 10 pounds Dressing / Incision Call your doctor if your incision/area has: Continuous Slow Oozing, Sudden Increased Bleeding, Increased Pain/ Swelling, Increased Redness and Foul Smelling Discharge Call your doctor if you observe: Fever of 101 or Higher Suture Line Care: Avoid Pulling/Pushing and Avoid Pinching/Bending Additional Dressing/Incision Instructions:: Change or remove dressing in 4 days. Leave steri-strips in place for 1 week. Follow Up Care Please Follow Up With: Ankur Adames MD When: Call [phone] to make an appointment to be seen in about 10 days. Test Results: Test results from this visit will be discussed in further detail at your follow- up appointment, if applicable. Discharge Plan Admission Attending Provider: Ankur Adames Primary Care Provider: Ronn Molina Discharge Orders/Prescriptions Prescriptions: No Action tramadol 50 mg tablet 50 mg PO BID methylphenidate HCl 5 mg tablet 5 mg PO QAM bupropion HCl 300 mg tablet extended release 24 hr 300 mg PO QAM Referrals / Follow Up: Ronn Molina MD [Primary Care Provider] - Disposition Disposition (needs filled in before D/C Order can be placed): Home, Self Care
--- NOTE | 2022-04-11 11:10 | GALL_PTH ---
PATIENT: SHANNON DEL ANGEL LOC: [facility] [place][id number] AGE/SX: 46/F ROOM: RE04/11/[address]: Dr. Ankur Adames MD : 1975 BED: DIS: 04/11/2022 SPEC #: [id number] RECD: 04/11/22 16:44 STATUS: LUIS DANIEL ROBLES #: [id number] STEPHAN: 04/11/22 11:[address]: Ankur Adames DEPT: SURGICAL PATHOLOGY RECD BY: Dangelo Irizarry ENTERED: 04/12/22 10:26 SP TYPE: TAMMY ZIMMERMAN DR: Dr. Ronn Molina MD Tissues: Gallbladder, NOS Procedures: Surgery Specimen Level III HEADER OPERATION: Laparoscopic cholecystectomy with IOC PRE-OP DIAGNOSIS: Unexplained weight loss, nausea, cholelithiasis with chronic cholecystitis TISSUE SUBMITTED: Gallbladder and contents MICROSCOPIC DIAGNOSIS Gallbladder, cholecystectomy: Chronic cholecystitis and cholelithiasis. AM:varinder 04/13/2022 MICROSCOPIC DESCRIPTION Slides are reviewed. GROSS DESCRIPTION Received is one container labeled with the patient's name and designated gallbladder and contents. The specimen consists of a gallbladder measuring 12 cm in length and 3 cm in diameter. The external surface is pink-bella, smooth and glistening for the most part. Focally it is granular, hemorrhagic and contains cautery artifact. The gallbladder is distended with green-yellow mucoid bile and contains multiple oth-xhtdcs-ltndk to greenish-black stones measuring in aggregate 6.5 x 6.5 x 1.5 cm and <0.1 to 2 cm in greatest dimension. The mucosa is bile-stained and without any mass lesions. The gallbladder wall measures 0.1 cm in thickness. Dump Truck Operator sections from the gallbladder and the cystic duct are submitted in one cassette. / SJ:varinder 04/12/2022 TC:3 CPT: 23457
[2022-04-11] MEDS: Cefazolin 2 GM in 0.9% Normal Saline 100 ML IV (12:08)
--- NOTE | 2022-04-11 13:28 | OP.PCM_ITS ---
Report of Operation Date of Procedure: 04/11/22 Pre-Operative Diagnosis: Chronic cholecystitis cholelithiasis Post-Operative Diagnosis: Same Laparoscopic identified left inguinal hernia Surgery/Procedure Performed:: Laparoscopic cholecystectomy with cholangiograms Description of Surgical Findings:: Timeout informed consent was obtained. 46-year-old female was taken to the operating placed on table underwent general tracheal ovation esthesia. Ancef 2 g were given intravenously. The abdomen sterilely prepped and draped. 0.5% Marcaine was used as a local anesthetic. Throughout the procedure a total of 30 cc was used. Skin sites were reanesthetized. A vertical infraumbilical incision was created holding sutures of 0 Vicryl placed varies needle inserted saline drop test performed the abdomen was insufflated with CO2 to a pressure of 10 mmHg pressure 10 mm trocar inserted 10 mm laparoscope inserted no evidence of any trocar injuries under direct visualization 5 mm ports were placed in the epigastric right mid upper abdomen right lateral upper abdomen. She was very short wasted. The gallbladder was identified it was distracted blunt dissection was instituted the infundibulum until clearly the cystic artery and cystic duct were identified. 2 Hem-o-anna clips were placed proximally 1 distally on the cystic artery before transecting it Hem-o-anna clip was placed on the cystic duct and incision in the cystic duct and through a 14-gauge Angiocath cholangiogram catheter was inserted. Fluoroscopically controlled cholangiograms were obtained demonstrating normal ductal anatomy and free flow into the small bowel. The ch olangiogram catheter was removed a very secure Hem-o-anna clip was placed on the cystic duct stump prior to transecting it the gallbladder was tediously dissected from the liver bed complete hemostasis was intact there was no spillage. The gallbladder was placed in the retrieval bag. The right upper quadrant was irrigated and aspirated free of excess fluid. Hemostasis was intact. The abdomen was allowed to deflate through an antiviral valve. The gallbladder filled with stones was exited the umbilicus but slightly enlarging the fascial incision. Gallbladder was clinically removed. The abdomen was completely deflated. The fascia was closed with a running suture of 0 Vicryl. Skin edges approximated opted for Monocryl subdermal stitches. Steri-Strips Telfa OpSite dressings and applied. Sponge and instrument and needle counts were reported to the surgeon to be correct. Specimen gallbladder. Drains none. Blood loss minimal. The patient was taken to the recovery area in satisfactory addition without apparent complication It is of note that during a laparoscopic exploration a left inguinal hernia was identified laparoscopically. No similar defect on the right. Ankur Adames M.D., F.A.C.S. Surgeon: Ankur Adames Type of Anesthesia: General Anesthesiologist: Katherine Patricia
--- NOTE | 2022-04-11 14:18 | SUR.PHASEI ---
REPEATEDLY STATES SHE'S STILL HAVING PAIN AFTER MEDICATING, STATES SHE WAS NOT EXPECTING TO HAVE ANY POST-OP PAIN. EVENTUALLY REPORTS SHE'S GOTTEN MINOR IMPROVEMENT FROM MEDICATION. SUPPORT & REASSURANCE, COMFORT MEASURE PROVIDED.
[2022-04-11] MEDS: HYDROcodone Bitartrate/Apap 5/325 Tablet PO (16:00)
[2022-04-11] MEDS: proMETHazine 25 MG/ML Syringe IM (17:04)
== END 2022-04-11 17:42 | disposition home or self-care (01) ==
LOC: SDC 09:00 → AC 09:02
PROVIDERS: PCP Family Medicine; Referring Provider Surgery; Visit Provider Surgery
PROC: (CPT 47610; principal; 2022-04-11 10:50)
DX: K80.10 Calculus of gallbladder with chronic cholecystitis without obstruction (principal); K29.50 Unspecified chronic gastritis without bleeding; D12.8 Benign neoplasm of rectum; K20.90 Esophagitis, unspecified without bleeding; F41.9 Anxiety disorder, unspecified; R63.4 Abnormal weight loss; R16.0 Hepatomegaly, not elsewhere classified; K40.90 Unilateral inguinal hernia, without obstruction or gangrene, not specified as recurrent; N83.202 Unspecified ovarian cyst, left side
CPT/HCPCS: 47563; 00790; 36415; 74300; 76000; 80048; 85027; 88304; 93005; J7120; J2405

== ENCOUNTER 2022-04-14 08:51 | Inpatient (IN) | payer OTHER, SELFPAY ==
[2022-04-14 08:52] VITALS: BP 159/80; PULSE 78; RESP 18; TEMP 36.6; O2SAT 100; BMI 27.8
--- NOTE | 2022-04-14 08:58 | CT_ITS ---
STUDY: CTA CHEST REASON FOR EXAM: Female, 46 years old. Dyspnea -- post op RADIATION DOSAGE (If Supplied By Facility): CTDIvol = ( 9.18 ) mGy, DLP = ( 963.98 ) mGycm TECHNIQUE: The examination was performed with the intravenous administration of IV 75mL Isovue-370. Post-processing of the angiographic images was performed, with multiplanar reformation and 3D reconstruction. Individualized dose optimization techniques were used for this CT. COMPARISON: None. FINDINGS: Normal enhancement of the main pulmonary artery and right and left pulmonary arteries. Normal enhancement of the bilateral peripheral pulmonary arteries. There is no demonstrated pulmonary embolism. Normal thoracic aorta and visualized great vessels. There is no demonstrated aortic dissection. Normal heart and pericardium. Normal mediastinum. Normal hilar regions. Normal visualized trachea and bronchi. The lungs are well expanded. Minimal degree of linear atelectasis at the left lung base. Normal pleura. Normal chest wall structures. Normal osseous structures. Findings suggest a mild degree of hyperplasia of the adrenal glands bilaterally. CT/CTA Chest W/WO Contrast IMPRESSION: Minimal degree of linear atelectasis at the left lung base. No evidence of pulmonary embolism. Electronically Signed: Aguila Harris MD at 10:06 [facility] ,
--- NOTE | 2022-04-14 08:58 | CT_ITS ---
STUDY: CT ABDOMEN AND PELVIS WITH CONTRAST REASON FOR EXAM: Female, 46 years old. Post op pain -- 3 days post op elective cholecystectomy. RADIATION DOSAGE (If Supplied By Facility): CTDIvol = ( 9.18 ) mGy, DLP = ( 963.98 ) mGycm TECHNIQUE: Transaxial images were obtained from the dome of the diaphragm to the symphysis pubis without oral contrast. IV 75mL Isovue-370 was administered. Sagittal and coronal images were reconstructed. Individualized dose optimization techniques were used for this CT. COMPARISON: Comparison is made with prior study dated 04/03/2022. FINDINGS: Minimal degree of linear atelectasis at the left lung base. The visualized portions of the heart are within normal limits. There is a 2.4 cm tiny fluid collection along the anterior lateral aspect of the right lobe of the liver most likely postoperative in nature. No evidence of a subcapsular hematoma. The patient is status post cholecystectomy. Minimal postoperative changes are seen at the gallbladder fossa. Normal spleen. Normal pancreas. Minimal enlargement of the adrenal glands bilaterally. Normal right kidney. Normal left kidney. Normal visualized stomach. Normal small intestine. Normal colon. The appendix is visualized and appears normal. Normal abdominal aorta. Normal inferior vena cava. Normal retroperitoneum. Normal urinary bladder. A small amount of free fluid is seen in the cul-de-sac. The previously seen left ovarian cyst is not distended. Normal abdominal wall. Normal osseous structures. CT/Abdomen/Pelvis W IV Cont ONLY IMPRESSION: The patient is status post cholecystectomy with post operative changes seen in the gallbladder fossa. Minimally dilated central intrahepatic biliary ducts. 2.4 cm fluid collection in the anterior lateral aspect of the serosal surface of the right lobe of the liver most likely postoperative in nature. Small amount of free fluid in the cul-de-sac. The previously seen left ovarian cyst is not seen at this time. Electronically Signed: Aguila Harris MD at 10:10 EST ,
--- NOTE | 2022-04-14 09:03 | EX.ED.DYSGE1 ---
HPI History of Present Illness Chief Complaint: Abd Pain Informant: patient and family Narrative Narrative: Brought in by EMS worsening abdominal pain back pain rating upper chest and neck. She is 3 days postop elective cholecystectomy performed by Dr. Adames. Since then noting some intermittent right back pain thought it was gas. She has had normal bowel movements the last couple days. However today 30 minutes ago significant pain in her abdomen going up her chest and neck. Shortness of breath. No other abdominal surgeries. She is having biliary colic symptoms for months per mother. She has no allergy. Prior similar symptoms: No PFSH PFSH Medical History (Updated 04/14/22 @ 13:[address] Dominguez Figueroa DO) Anxiety Encounter for screening for COVID-19 Nausea Non-smoker Wears glasses Weight loss Home Medications bupropion HCl 300 mg 24 hr tablet, extended release 300 mg PO QAM 02/09/22 [History Last Taken Unknown] methylphenidate HCl 5 mg tablet 5 mg PO QAM 02/09/22 [History Last Taken Unknown] tramadol 50 mg tablet 50 mg PO BID 02/09/22 [History Last Taken Unknown] hydrocodone-acetaminophen 5-325mg 5mg-325mg 1 tab PO Q6H PRN pain 2 days #5 tabs 04/11/22 [Rx Last Taken Unknown] Allergy/AdvReac Type Severity Reaction Status Date / Time No Known Allergies Allergy Verified 04/11/22 09:08 Family History Mother Arthritis Osteoporosis Father Cancer Bladder Surgical History (Updated 04/14/22 @ 13:[address] Dominguez Figueroa DO) History of cholecystectomy Hx of colonoscopy Social History Smoking Status: Never smoker alcohol intake: never substance use type: does not use ROS ROS ED Constitutional Constitutional ED: Denies chills, fever(s) or sweats Eyes Eyes: Denies change in vision ENT ENT ED: Denies sore throat Cardiovascular Cardiovascular: Reports chest pain; Denies leg edema, palpitations or racing heartbeat Respiratory/Chest Respiratory/Chest: Reports dyspnea; Denies cough or dyspnea on exertion Gastrointestinal Gastrointestinal: Reports abdominal pain; Denies diarrhea, nausea or vomiting Genitourinary Genitourinary ED: Denies dysuria, hematuria or urinary frequency Musculoskeletal Musculoskeletal: Denies back pain, extremity pain or neck pain Integumentary Denies rash or wounds Neurologic Neurologic: Denies headache(s), paresthesias or weakness EXAM Physical Exam Const Vital Signs: 04/14/22 08:52 04/14/22 12:07 04/14/22 13:21 Temperature 97.8 F 98 F Temperature Source Oral Temporal Pulse Rate 78 68 65 Respiratory Rate 18 16 16 Blood Pressure 159/80 H 147/78 H 139/81 H Blood Pressure Mean 106 101 100 Pulse Ox 100 99 98 Oxygen Delivery Method Room Air Room Air Room Air Positive well nourished and well developed Constitutional Narrative: Uncomfortable writhing in bed, diaphoretic General Appearance ED: well developed HEENT Reports moist mucous membranes normocephalic and atraumatic Eyes General Eye ED: Yes normal appearance of both eyes Neck no lymphadenopathy and supple General: Negative for tenderness Chest Wall Chest: Negative for tenderness Resp normal respiratory effort and normal air movement Effort and Inspection: symmetric chest movement; Negative for respiratory distress Cardio regular rate, regular rhythm and no murmurs Peripheral Pulses: pulses 2+ throughout GI normal to inspection, nondistended, normoactive bowel sounds GI Narrative: Abdominal dressing to the abdomen clean, dry, intact. Palpation: Negative for guarding or rebound tenderness present Back/Spine no CVA tenderness and no thoracic nor lumbar tenderness Extremity normal to inspection General Extremety ED: Negative for edema or tenderness General Extremity: Negative for edema Neuro oriented x3 and no sensory deficits noted Sensorium / Orientation: awake and alert Skin no rashes or lesions noted and no wounds MDM MDM MDM Narrative Medical decision making narrative: Patient writhing in pain postop abdominal surgery 3 days. Diaphoretic. Reports abdominal chest and neck pain. Differentials postop complications, PE, ACS. IV to be established EKG. We will have PE studies along with CT abdomen pelvis with contrast for evaluation. We will treat for pain in the ED. Laboratory studies White count 12.2 creatinine 0.82 potassium 3.1. Normal lipase and liver enzymes. CT PE study interpreted myself and read by radiology negative for any PE. CT abdomen pelvis resulted notes concerns for 2.4 m fluid collection with pulse Doppler changes. Reevaluation she was feeling better, however with her being postop and significant discomfort I did reach out to her surgeon Dr. Adames, who will evaluate patient in the ED. Patient symptoms pain deep breath pain in the right shoulder concerns for diaphragmatic irritation. The interim additional morphine was given. She was seen by surgery agrees with concerns he okayed giving Toradol help with symptoms. This was given. She was having improvement. Initial plan for potential discharge with NSAIDs with continuing her hydrocodone. However prior to discharge reevaluation pain started returning. Therefore we discussed with Dr. Adames who will admit for symptom control. Patient and family updated. Lab Data Attestation: I reviewed the patient's lab results. Labs: Laboratory Results - last 24 hr 04/14/22 04/14/22 04/14/22 09:05 09:05 09:05 WBC 12.2 H RBC 4.67 Hgb 13.9 Hct 42.8 MCV 91.6 MCH 29.8 MCHC 32.5 RDW Std Deviation 41.6 RDW Coeff of Jewell 12.4 Plt Count 411 MPV 8.7 PT 12.2 INR 0.9 APTT 24.5 Sodium 144 Potassium 3.1 L Chloride 107 Carbon Dioxide 29.0 Anion Gap 8 BUN 9 Creatinine 0.82 Estim Creat Clear Calc 66.36 Est GFR (MDRD) Af Amer 95 Est GFR (MDRD) Non-Af 79 BUN/Creatinine Ratio 10.9 Glucose 121 H Calcium 8.9 Total Bilirubin 0.30 Direct Bilirubin 0.10 AST 32 ALT 42 Alkaline Phosphatase 66 Troponin I High Sens 18 Total Protein 6.9 Albumin 3.5 Globulin 3.4 Lipase 62 L Radiography Diagnostic Testing: Clinical Impression(s) from Imaging Studies Abdomen/Pelvis CT 04/14/22 08:58 IMPRESSION: The patient is status post cholecystectomy with post operative changes seen in the gallbladder fossa. Minimally dilated central intrahepatic biliary ducts. 2.4 cm fluid collection in the anterior lateral aspect of the serosal surface of the right lobe of the liver most likely postoperative in nature. Small amount of free fluid in the cul-de-sac. The previously seen left ovarian cyst is not seen at this time. Electronically Signed: Aguila Hraris MD at 10:10 EST , Chest CTA 04/14/22 08:58 IMPRESSION: Minimal degree of linear atelectasis at the left lung base. No evidence of pulmonary embolism. Electronically Signed: Aguila Harris MD at 10:06 EST , Discharge Plan Dx/Rx/DC Orders Clinical Impression: Postoperative abdominal pain, Abdominal pain, S/P laparoscopic cholecystectomy Disposition Disposition: Acute Care Hospital [facility] Discharge Date/Time: 04/14/22 14:34
[2022-04-14] MEDS: Ondansetron 4 MG/2 ML Vial IV (09:05)
[2022-04-14] MEDS: morphine 10 MG/ML Syringe IV (09:05)
[2022-04-14] MEDS: 0.9% Normal Saline 1,000 ML 150 ML IV (09:06)
[2022-04-14 09:17] LABS: Hematocrit 42.8 % (37-47); Hemoglobin 13.9 g/dL (12.0-15.0); Mean Corp Hgb Conc 32.5 g/dL (32-36); Mean Corpuscular Hgb 29.8 pg (27.0-32.0); Mean Corpuscular Volume 91.6 fL (81-99); Mean Platelet Vol. 8.7 fl (6.2-12.0); Platelet Count 411 K/mm3 (150-450); RBC Distribution Width CV 12.4 % (11.6-14.6); RBC Distribution Width SD 41.6 fl (35.1-43.9); Red Blood Count 4.67 M/mm3 (4.2-5.4); White Blood Count 12.2 K/mm3 (4.4-11.0)
[2022-04-14 09:33] LABS: AST(SGOT) 32 U/L (15-37); Alanine Aminotransfer ALT/SGPT 42 U/L (13-56); Albumin, Serum 3.5 g/dL (3.2-5.0); Alkaline Phosphatase 66 U/L (45-117); Anion Gap 8 (5-15); BUN 9 mg/dL (7-18); BUN/Creat Ratio 10.9 RATIO (10-20); Calcium,Total 8.9 mg/dL (8.5-10.1); Chloride 107 mmol/L (98-107); Creatinine, Serum 0.82 mg/dL (0.55-1.02); EST Glomerular Filtration Rate 79 mL/min (>60); Est Glom Filt Rate - Afr Amer 95 mL/min (>60); Estimated Creatinine Clearance 66.36 ml/min; Globulin 3.4 g/dL (2.2-4.2); Glucose 121 mg/dL (74-106); Lipase 62 U/L (73-393); Potassium 3.1 mmol/L (3.5-5.1); Protein, Total 6.9 g/dL (6.4-8.2); Sodium Level 144 mmol/L (136-145); Troponin-I HS 18 pg/mL (3.0-54.0)
[2022-04-14 09:34] LABS: International Normalized Ratio 0.9; Partial Thromboplast Time 24.5 Seconds (24.1-36.2); Prothrombin Time (Protime)PT. 12.2 SECONDS (11.7-14.9)
[2022-04-14] MEDS: Morphine 4 MG/ML Syringe IV (10:59)
[2022-04-14] MEDS: Ketorolac 30 MG/ML Syringe IV (11:29)
--- NOTE | 2022-04-14 11:36 | PCM.PN.SRG ---
Subjective Subjective Complains of severe abdominal pain. She complains that it is of roving in the abdomen. She states initially it was in the right lower quadrant and in the epigastric area. She complains that she cannot take a deep breath. She is 2 days status post laparoscopic cholecystectomy. I have been asked to see this patient in the emergency room by Dr Dominguez Figueroa. The patient apparently came in in extreme distress. He has worked the patient up. Her vital signs are stable with a normal temperature of 97.8 blood pressure 159/80.. Laboratory notable for white blood cell count of 12.2 with a hemoglobin 13.9 hematocrit 42.8 platelet count 411,000. Her electrolytes normal except for slightly low potassium at 3.1. BUN is normal at 9 creatinine normal at 0.82. Her liver function tests are normal. Her CRP is normal. Lipase is normal even low normal at 62. Because of the patient's severe presentation a CT of the chest was obtained. This shows minimal degree of linear atelectasis left lung base no evidence of pulmonary embolism.. A CT scan was obtained of the abdomen as well. I have reviewed this imaging. Very minimal postoperative changes in the gallbladder bed. Minimally dilated central intrahepatic biliary ducts. 2.4 cm fluid collection anterior lateral aspect of the scrotal surface of the right low liver likely postoperative in nature. Small amount of free fluid in the cul-de-sac. The patient is very anxious. Mildly tachypneic. Taking short choppy breaths. Objective Data Objective Data Vital Signs: Vital Signs Temp Pulse Resp BP Pulse Ox O2 Del Method 97.8 F 78 18 159/80 H 100 Room Air 04/14/22 08:52 04/14/22 08:52 04/14/22 08:52 04/14/22 08:52 04/14/22 08:52 04/14/22 08:52 Oxygen Delivery Method Room Air Weight: 152 lb 1.903 oz Body Mass Index (BMI) 27.8 Lab / Micro Data Result Diagrams: 04/14/22 09:05 04/14/22 09:05 Labs: Laboratory Results - last 24 hr 04/14/22 09:05: WBC 12.2 H, RBC 4.67, Hgb 13.9, Hct 42.8, MCV 91.6, MCH 29.8, MCHC 32.5, RDW Std Deviation 41.6, RDW Coeff of Jewell 12.4, Plt Count 411, MPV 8.7 04/14/22 09:05: PT 12.2, INR 0.9, APTT 24.5 04/14/22 09:05: Sodium 144, Potassium 3.1 L, Chloride 107, Carbon Dioxide 29.0, Anion Gap 8, BUN 9, Creatinine 0.82, Estim Creat Clear Calc 66.36, Est GFR (MDRD) Af Amer 95, Est GFR (MDRD) Non-Af 79, BUN/Creatinine Ratio 10.9, Glucose 121 H, Calcium 8.9, Total Bilirubin 0.30, Direct Bilirubin 0.10, AST 32, ALT 42, Alkaline Phosphatase 66, Troponin I High Sens 18, Total Protein 6.9, Albumin 3.5, Globulin 3.4, Lipase 62 L Radiography Diagnostic Testing: Radiology Impression Abdomen/Pelvis CT 04/14/22 08:58 IMPRESSION: The patient is status post cholecystectomy with post operative changes seen in the gallbladder fossa. Minimally dilated central intrahepatic biliary ducts. 2.4 cm fluid collection in the anterior lateral aspect of the serosal surface of the right lobe of the liver most likely postoperative in nature. Small amount of free fluid in the cul-de-sac. The previously seen left ovarian cyst is not seen at this time. Electronically Signed: Aguila Harris MD at 10:10 EST , Chest CTA 04/14/22 08:58 IMPRESSION: Minimal degree of linear atelectasis at the left lung base. No evidence of pulmonary embolism. Electronically Signed: Aguila Harris MD at 10:06 EST , Physical Exam Narrative Patient appears in acute distress Resp Resp Narrative: Clear but poor respiratory excursion Cardio regular rate and regular rhythm GI GI Narrative: Patient holds her abdomen rigidly but when distracted she is not focally tender Assessment & Plan Assessment/Plan (1) Abdominal pain: PLAN: The patient's presentation of abdominal pain seems out of proportion to clinical findings. My best estimation at this time is some postoperative diaphragmatic irritation from the pneumoperitoneum however admittedly there does not appear to be any significant free air remaining and she has had both a chest and an abdomen CT. We will provide Toradol 30 mg IV to see if we can get clinical improvement. Ankur Adames M.D., F.A.C.S.
[2022-04-14 12:07] VITALS: BP 147/78; PULSE 68; RESP 16; O2SAT 99
[2022-04-14] MEDS: Potassium Chloride Oral Tablet 20 MEQ 40 MEQ PO (12:14)
--- NOTE | 2022-04-14 12:46 | NURSING ---
1230-pt standing in room leaning over bed and reports that feels better standing this way. pt joking now with nurse and not nearly as uncomfortable appearing. reports that toradol much more effective than morphine seemingly. shoulder pain subsided for now since had been up. water given with oral kcl replacement
--- NOTE | 2022-04-14 13:12 | ED.RN ---
1250-pt seen amb st up with posture to br to void and waving and smiling at nurse at brisk pace then 15min later called to room and pt rubbing rt lower quad and leaning over bed saying that pain coming back again and happened after voided and is afraid that if goes home will come back like did this am dr. moseley was just in and will talk with dr. beverly again readressing
[2022-04-14 13:21] VITALS: BP 139/81; PULSE 65; RESP 16; TEMP 36.6; O2SAT 98
--- NOTE | 2022-04-14 13:50 | HP.PCM_ITS ---
HPI - General General Date of Admission: 04/14/22 Date of Service: 04/14/22 Chief Complaint: Postoperative pain HPI Narrative SHANNON GOLDSTEIN, is a 46 F who presents to the emergency room complaining of severe difficulties with breathing and epigastric pain but roving abdominal pain. She is status post a laparoscopic cholecystectomy of April 11, 2022. Findings showed chronic cholecystitis cholelithiasis. Normal cholangiogram. As noted in my previous note information obtained today demonstrates a minimally elevated white count. Liver function test normal lipase normal. CT scan not remarkable. [facility] Medical History (Updated 04/14/22 @ 13:[address] Dominguez Figueroa DO) Anxiety Encounter for screening for COVID-19 Nausea Non-smoker Wears glasses Weight loss Home Medications bupropion HCl 300 mg 24 hr tablet, extended release 300 mg PO QAM 02/09/22 [History Last Taken Unknown] methylphenidate HCl 5 mg tablet 5 mg PO QAM 02/09/22 [History Last Taken Unknown] tramadol 50 mg tablet 50 mg PO BID 02/09/22 [History Last Taken Unknown] hydrocodone-acetaminophen 5-325mg 5mg-325mg 1 tab PO Q6H PRN pain 2 days #5 tabs 04/11/22 [Rx Last Taken Unknown] Allergy/AdvReac Type Severity Reaction Status Date / Time No Known Allergies Allergy Verified 04/11/22 09:08 Family History Mother Arthritis Osteoporosis Father Cancer Bladder Surgical History (Updated 04/14/22 @ 13:[address] Dominguez Figueroa DO) History of cholecystectomy Hx of colonoscopy Social History Smoking Status: Never smoker alcohol intake: never substance use type: does not use Vital Signs Vital Signs Vital Signs: 04/14/22 08:52 04/14/22 12:07 04/14/22 13:21 Temperature 97.8 F 98 F Temperature Source Oral Temporal Pulse Rate 78 68 65 Respiratory Rate 18 16 16 Blood Pressure 159/80 H 147/78 H 139/81 H Blood Pressure Mean 106 101 100 Pulse Ox 100 99 98 Oxygen Delivery Method Room Air Room Air Room Air Weight Weight: 152 lb 1.903 oz Body Mass Index (BMI) 27.8 Physical Exam Const Constitutional Narrative: Patient appears to be in distress. She is tachypneic with diminished respiratory excursion. She is holding her abdomen solid but can be distracted Resp normal respiratory effort Auscultation: clear to auscultation bilaterally GI GI Narrative: Tender abdomen, difficult to evaluate due to patient's voluntary guarding Results Lab / Micro Data Result Diagrams: 04/14/22 09:05 04/14/22 09:05 Labs: Laboratory Results - last 24 hr 04/14/22 09:05: WBC 12.2 H, RBC 4.67, Hgb 13.9, Hct 42.8, MCV 91.6, MCH 29.8, MCHC 32.5, RDW Std Deviation 41.6, RDW Coeff of Jewell 12.4, Plt Count 411, MPV 8.7 04/14/22 09:05: PT 12.2, INR 0.9, APTT 24.5 04/14/22 09:05: Sodium 144, Potassium 3.1 L, Chloride 107, Carbon Dioxide 29.0, Anion Gap 8, BUN 9, Creatinine 0.82, Estim Creat Clear Calc 66.36, Est GFR (MDRD) Af Amer 95, Est GFR (MDRD) Non-Af 79, BUN/Creatinine Ratio 10.9, Glucose 121 H, Calcium 8.9, Total Bilirubin 0.30, Direct Bilirubin 0.10, AST 32, ALT 42, Alkaline Phosphatase 66, Troponin I High Sens 18, Total Protein 6.9, Albumin 3.5, Globulin 3.4, Lipase 62 L Radiology Impression Abdomen/Pelvis CT 04/14/22 08:58 IMPRESSION: The patient is status post cholecystectomy with post operative changes seen in the gallbladder fossa. Minimally dilated central intrahepatic biliary ducts. 2.4 cm fluid collection in the anterior lateral aspect of the serosal surface of the right lobe of the liver most likely postoperative in nature. Small amount of free fluid in the cul-de-sac. The previously seen left ovarian cyst is not seen at this time. Electronically Signed: Aguila Harris MD at 10:10 EST , Chest CTA 04/14/22 08:58 IMPRESSION: Minimal degree of linear atelectasis at the left lung base. No evidence of pulmonary embolism. Electronically Signed: Aguila Harris MD at 10:06 EST , Assessment & Plan Assessment/Plan (1) Postoperative abdominal pain: PLAN: Postoperative abdominal pain of undetermined etiology. The patient's presentation seems out of proportion to objective findings with laboratory and imaging. She was briefly improved with IV Toradol and was suddenly breathing better and then complained of a severe pain causing her to bend over. Etiology to her presentation seems unusual for postop day 3. The patient clearly is uncomfortable with outpatient management. We will admit her for observation. Ankur Adames M.D., F.A.C.S.
[2022-04-14 15:26] VITALS: BMI 19.7
[2022-04-14 15:35] VITALS: BP 143/79; PULSE 60; RESP 18; TEMP 36.7; O2SAT 99
[2022-04-14] MEDS: Lactated Ringers 1,000 ML 100 ML IV (15:51)
--- NOTE | 2022-04-14 16:00 | PCM.PN.SRG ---
Subjective Subjective Patient is now in her room. No current visitors. She does not appear to be in the distress that she was earlier. Demonstrates some signs of mild discomfort. Respirations have normalized. Objective Data Objective Data Vital Signs: Vital Signs Temp Pulse Resp BP Pulse Ox O2 Del Method 98.1 F 60 18 143/79 H 99 Room Air 04/14/22 15:35 04/14/22 15:35 04/14/22 15:35 04/14/22 15:35 04/14/22 15:35 04/14/22 15:55 Oxygen Delivery Method Room Air Weight: 108 lb Body Mass Index (BMI) 19.7 Intake & Output: Intake and Output for Last 24 Hours 04/12/22 04/13/22 04/14/22 23:59 23:59 23:59 Intake Total 1000 / 1000 Balance 1000 / 1000 Lab / Micro Data Result Diagrams: 04/14/22 09:05 04/14/22 09:05 Labs: Laboratory Results - last 24 hr 04/14/22 09:05: WBC 12.2 H, RBC 4.67, Hgb 13.9, Hct 42.8, MCV 91.6, MCH 29.8, MCHC 32.5, RDW Std Deviation 41.6, RDW Coeff of Jewell 12.4, Plt Count 411, MPV 8.7 04/14/22 09:05: PT 12.2, INR 0.9, APTT 24.5 04/14/22 09:05: Sodium 144, Potassium 3.1 L, Chloride 107, Carbon Dioxide 29.0, Anion Gap 8, BUN 9, Creatinine 0.82, Estim Creat Clear Calc 66.36, Est GFR (MDRD) Af Amer 95, Est GFR (MDRD) Non-Af 79, BUN/Creatinine Ratio 10.9, Glucose 121 H, Calcium 8.9, Total Bilirubin 0.30, Direct Bilirubin 0.10, AST 32, ALT 42, Alkaline Phosphatase 66, Troponin I High Sens 18, Total Protein 6.9, Albumin 3.5, Globulin 3.4, Lipase 62 L Radiography Diagnostic Testing: Radiology Impression Abdomen/Pelvis CT 04/14/22 08:58 IMPRESSION: The patient is status post cholecystectomy with post operative changes seen in the gallbladder fossa. Minimally dilated central intrahepatic biliary ducts. 2.4 cm fluid collection in the anterior lateral aspect of the serosal surface of the right lobe of the liver most likely postoperative in nature. Small amount of free fluid in the cul-de-sac. The previously seen left ovarian cyst is not seen at this time. Electronically Signed: Aguila Harris MD at 10:10 EST , Chest CTA 04/14/22 08:58 IMPRESSION: Minimal degree of linear atelectasis at the left lung base. No evidence of pulmonary embolism. Electronically Signed: Aguila Harris MD at 10:06 EST , Physical Exam GI GI Narrative: Soft, very slightly distended, no focal concerning tenderness Assessment & Plan Assessment/Plan (1) Postoperative abdominal pain: PLAN: Patient is on chronic tramadol therapy. Also takes Wellbutrin. She was on methylphenidate. My suspicion is that she has an altered pain tolerance. I also believe there is a degree of complicating anxiety. I will try some Ativan. I encouraged the patient to mobilize. I have instructed her we will repeat lab work in the morning and then I will recheck her. At this time I do anticipate discharge home tomorrow unless new findings occur. Ankur Adames M.D., F.A.C.S.
[2022-04-14] MEDS: LORazepam 1 MG Tablet PO (16:03)
--- NOTE | 2022-04-14 16:03 | DCINST_ITS ---
Discharge Instructions Procedure General Surgery Diet Discharge Diet: Light diet - advance as tolerated (if you have questions about your diet instructions, please talk to you doctor.) Activity Discharge Activity: May Not Drive (for 3-5 days or while taking narcotic pain medicine.) May shower in (days): 1 Lifting Restrictions: 10 pounds Dressing / Incision Call your doctor if your incision/area has: Continuous Slow Oozing, Sudden Increased Bleeding, Increased Pain/ Swelling, Increased Redness and Foul Smelling Discharge Call your doctor if you observe: Fever of 101 or Higher Suture Line Care: Avoid Pulling/Pushing and Avoid Pinching/Bending Additional Dressing/Incision Instructions:: As per previous instructions. Follow-up as previously scheduled. Ankur Adames M.D., F.A.C.S. Follow Up Care Test Results: Test results from this visit will be discussed in further detail at your follow- up appointment, if applicable. Discharge Plan Admission Admit Date/Time: 04/14/22 13:55 Attending Provider: Ankur Adames Primary Care Provider: Ronn Molina Discharge Orders/Prescriptions Prescriptions: No Action tramadol 50 mg tablet 50 mg PO BID methylphenidate HCl 5 mg tablet 5 mg PO QAM bupropion HCl 300 mg tablet extended release 24 hr 300 mg PO QAM hydrocodone-acetaminophen 5-325 mg tablet 1 tab PO Q6H PRN (Reason: pain) 2 Days Qty: 5 0RF Referrals / Follow Up: Ronn Molina MD [Primary Care Provider] -
[2022-04-14 16:38] LABS: Absolute Lymphocyte Count 2.75 X10^3/uL (0.83-4.51); Absolute Neutrophil Count 12.6 X10^3/uL (2.0-7.7); Basophil# 0.06 X10^3/uL; Basophil% 0.4 % (0-1); Eosinophil# 0.01 X10^3/uL; Eosinophils% 0.1 % (0-5); Hematocrit 39.4 % (37-47); Hemoglobin 13.1 g/dL (12.0-15.0); Lymphocyte # 2.75 X10^3/ul (0.83-4.51); Lymphocyte % 16.5 % (19-41); Mean Corp Hgb Conc 33.2 g/dL (32-36); Mean Corpuscular Hgb 30.3 pg (27.0-32.0); Mean Corpuscular Volume 91.2 fL (81-99); Mean Platelet Vol. 8.6 fl (6.2-12.0); Monocyte# 1.14 X10^3/uL; Monocyte% 6.8 % (0-10); NRBC Flagged by Analyzer 0 % (0-5); Neutrophil # 12.61 X10^3/uL (2.7-7.7); Neutrophil % 75.7 % (47-70); Platelet Count 357 K/mm3 (150-450); RBC Distribution Width CV 12.3 % (11.6-14.6); RBC Distribution Width SD 41.4 fl (35.1-43.9); Red Blood Count 4.32 M/mm3 (4.2-5.4); White Blood Count 16.7 K/mm3 (4.4-11.0)
[2022-04-14] MEDS: HYDROmorphone 1 MG/ML Syringe IV (19:35)
[2022-04-14 20:00] VITALS: BP 177/93; PULSE 73; RESP 18; TEMP 37.4; O2SAT 99
[2022-04-14] MEDS: traMADol 50 MG Tablet PO (20:51)
[2022-04-15] VITALS (12 sets, daily range): BP systolic 110–147; BP diastolic 58–81; PULSE 65–86; RESP 16–18; TEMP 36.3–37.3; O2SAT 96–99
[2022-04-15] MEDS: HYDROmorphone 1 MG/ML Syringe IV ×3 (00:14→11:13)
[2022-04-15] MEDS: 0.9% Saline Lock 10 ML Syringe IV ×3 (00:14→08:26)
[2022-04-15] MEDS: Lactated Ringers 1,000 ML 100 ML IV ×2 (00:18→10:09)
[2022-04-15] MEDS: Ondansetron 4 MG/2 ML Vial IV (02:56)
[2022-04-15] MEDS: HYDROcodone Bitartrate/Apap 5/325 Tablet PO (02:57)
[2022-04-15 05:44] LABS: Absolute Lymphocyte Count 2.81 X10^3/uL (0.83-4.51); Absolute Neutrophil Count 11.6 X10^3/uL (2.0-7.7); Basophil# 0.04 X10^3/uL; Basophil% 0.3 % (0-1); Eosinophil# 0.02 X10^3/uL; Eosinophils% 0.1 % (0-5); Hematocrit 40.8 % (37-47); Hemoglobin 13.1 g/dL (12.0-15.0); Lymphocyte # 2.81 X10^3/ul (0.83-4.51); Lymphocyte % 17.9 % (19-41); Mean Corp Hgb Conc 32.1 g/dL (32-36); Mean Corpuscular Hgb 29.5 pg (27.0-32.0); Mean Corpuscular Volume 91.9 fL (81-99); Mean Platelet Vol. 8.7 fl (6.2-12.0); Monocyte# 1.17 X10^3/uL; Monocyte% 7.4 % (0-10); NRBC Flagged by Analyzer 0 % (0-5); Neutrophil % 73.7 % (47-70); Platelet Count 374 K/mm3 (150-450); RBC Distribution Width CV 12.2 % (11.6-14.6); RBC Distribution Width SD 40.9 fl (35.1-43.9); Red Blood Count 4.44 M/mm3 (4.2-5.4); White Blood Count 15.7 K/mm3 (4.4-11.0)
[2022-04-15 06:22] LABS: AST(SGOT) 111 U/L (15-37); Alanine Aminotransfer ALT/SGPT 116 U/L (13-56); Albumin, Serum 3.2 g/dL (3.2-5.0); Alkaline Phosphatase 103 U/L (45-117); Anion Gap 5 (5-15); BUN 7 mg/dL (7-18); BUN/Creat Ratio 11.1 RATIO (10-20); Calcium,Total 8.6 mg/dL (8.5-10.1); Chloride 104 mmol/L (98-107); Creatinine, Serum 0.63 mg/dL (0.55-1.02); EST Glomerular Filtration Rate 107 mL/min (>60); Est Glom Filt Rate - Afr Amer 130 mL/min (>60); Estimated Creatinine Clearance 84.45 ml/min; Globulin 3.3 g/dL (2.2-4.2); Glucose 117 mg/dL (74-106); Potassium 4.3 mmol/L (3.5-5.1); Protein, Total 6.5 g/dL (6.4-8.2); Sodium Level 138 mmol/L (136-145)
--- NOTE | 2022-04-15 06:53 | PCM.PN.SRG ---
Subjective Subjective Patient still very uncomfortable Objective Data Objective Data Vital Signs: Vital Signs Temp Pulse Resp BP Pulse Ox O2 Del Method 99.1 F 65 16 134/81 H 98 Room Air 04/15/22 03:00 04/15/22 03:00 04/15/22 03:00 04/15/22 03:00 04/15/22 03:00 04/15/22 03:00 Oxygen Delivery Method Room Air Weight: 108 lb Body Mass Index (BMI) 19.7 Intake & Output: Intake and Output for Last 24 Hours 04/13/22 04/14/22 04/15/22 23:59 23:59 23:59 Intake Total 1000 / 1000 845 / 845 Balance 1000 / 1000 845 / 845 Lab / Micro Data Result Diagrams: 04/15/22 05:22 04/15/22 05:22 Labs: Laboratory Results - last 24 hr 04/14/22 09:05: WBC 12.2 H, RBC 4.67, Hgb 13.9, Hct 42.8, MCV 91.6, MCH 29.8, MCHC 32.5, RDW Std Deviation 41.6, RDW Coeff of Jewell 12.4, Plt Count 411, MPV 8.7 04/14/22 09:05: PT 12.2, INR 0.9, APTT 24.5 04/14/22 09:05: Sodium 144, Potassium 3.1 L, Chloride 107, Carbon Dioxide 29.0, Anion Gap 8, BUN 9, Creatinine 0.82, Estim Creat Clear Calc 66.36, Est GFR (MDRD) Af Amer 95, Est GFR (MDRD) Non-Af 79, BUN/Creatinine Ratio 10.9, Glucose 121 H, Calcium 8.9, Total Bilirubin 0.30, Direct Bilirubin 0.10, AST 32, ALT 42, Alkaline Phosphatase 66, Troponin I High Sens 18, Total Protein 6.9, Albumin 3.5, Globulin 3.4, Lipase 62 L 04/14/22 16:25: WBC 16.7 H, RBC 4.32, Hgb 13.1, Hct 39.4, MCV 91.2, MCH 30.3, MCHC 33.2, RDW Std Deviation 41.4, RDW Coeff of Jewell 12.3, Plt Count 357, MPV 8.6, Immature Gran % (Auto) 0.500, Neut % (Auto) 75.7 H, Lymph % (Auto) 16.5 L, [place] % (Auto) 6.8, Eos % (Auto) 0.1, Baso % (Auto) 0.4, Absolute Neuts (auto) 12.6 H, Absolute Lymphs (auto) 2.75, Nucleated RBC % 0 04/15/22 05:22: Sodium 138, Potassium 4.3, Chloride 104, Carbon Dioxide 29.0, Anion Gap 5, BUN 7, Creatinine 0.63, Estim Creat Clear Calc 84.45, Est GFR (MDRD) Af Amer 130, Est GFR (MDRD) Non-Af 107, BUN/Creatinine Ratio 11.1, Glucose 117 H, Calcium 8.6, Total Bilirubin 0.70, AST 111 H, ALT 116 H, Alkaline Phosphatase 103, Total Protein 6.5, Albumin 3.2, Globulin 3.3, Albumin/Globulin Ratio 1.0 04/15/22 05:22: WBC 15.7 H, RBC 4.44, Hgb 13.1, Hct 40.8, MCV 91.9, MCH 29.5, MCHC 32.1, RDW Std Deviation 40.9, RDW Coeff of Jewell 12.2, Plt Count 374, MPV 8.7, Immature Gran % (Auto) 0.600, Neut % (Auto) 73.7 H, Lymph % (Auto) 17.9 L, [place] % (Auto) 7.4, Eos % (Auto) 0.1, Baso % (Auto) 0.3, Absolute Neuts (auto) 11.6 H, Absolute Lymphs (auto) 2.81, Nucleated RBC % 0 Radiography Diagnostic Testing: Radiology Impression Abdomen/Pelvis CT 04/14/22 08:58 IMPRESSION: The patient is status post cholecystectomy with post operative changes seen in the gallbladder fossa. Minimally dilated central intrahepatic biliary ducts. 2.4 cm fluid collection in the anterior lateral aspect of the serosal surface of the right lobe of the liver most likely postoperative in nature. Small amount of free fluid in the cul-de-sac. The previously seen left ovarian cyst is not seen at this time. Electronically Signed: Aguila Harris MD at 10:10 EST , Chest CTA 04/14/22 08:58 IMPRESSION: Minimal degree of linear atelectasis at the left lung base. No evidence of pulmonary embolism. Electronically Signed: Aguila Harris MD at 10:06 EST , Physical Exam GI GI Narrative: Patient holding abdomen bending over clearly in discomfort Assessment & Plan Assessment/Plan (1) Postoperative abdominal pain: PLAN: Plan Hepatocellular liver function tests have elevated. I am strongly suspicious of a bile leak. Other etiology would be duct obstruction but the cholangiogram did not demonstrate any intraluminal filling defects. I have personally discussed her condition with Dr. Dominguez Lemos. He is willing to proceed with ERCP for diagnosis and definitive treatment. I certainly appreciate his assistance. While awaiting operating room time I would obtain a right upper quadrant ultrasound looking for fluid or potentially common duct distention. Ankur Adames M.D., F.A.C.S.
--- NOTE | 2022-04-15 07:00 | US_ITS ---
HISTORY: suspected bile leak -- HX OF CHOLECYSTECTOMY 04/12/22 WITH PAIN SINCE SURGERY. TECHNIQUE: Mayes scale and color doppler imaging was performed of the right upper quadrant. 67 images. COMPARISON: CT prior day. FINDINGS: LIVER: 18.6 cm in length. Homogeneous echotexture without focal lesion demonstrated. Borderline intrahepatic ductal dilatation. Mild perihepatic free fluid. MAIN PORTAL VEIN: Patent with hepatopedal flow. COMMON BILE DUCT: 5 mm in diameter. GALLBLADDER: Surgically absent. PANCREAS: Visualized proximal pancreas unremarkable with a 2 mm pancreatic duct. RIGHT KIDNEY: 11.2 cm in length with a cortical thickness of 1.5 cm. No hydronephrosis or gross renal mass demonstrated. US/Gallbladder IMPRESSION: Mild postoperative perihepatic free fluid or ascites. Consider correlation with scintigraphy if there is clinical suspicion for bile leak. Mild hepatomegaly. Cholecystectomy with borderline intrahepatic biliary dilatation. Electronically Signed: Sue Darden MD at 9:58 EST ,
--- NOTE | 2022-04-15 07:07 | PN_ITS ---
Progress Note The patient presented 3 days after laparoscopic cholecystectomy with extreme pain. She is still having lower abdominal and right upper quadrant pain. Dr. Adames has a high suspicion for a bile leak. Her LFTs did slightly increased today. I was consulted for ERCP. I discussed ERCP with the patient in detail. I discussed stent placement and bile leak with her in detail as well. I discussed the risks of the procedure such as bleeding, infection, perforation the bile duct or bowel, pancreatitis. Patient understands the risks and is willing to proceed with ERCP with stent placement. Emigdio Lemos MD Pager: [facility] [address] [place] [address], [address] [place] [address] Office:
--- NOTE | 2022-04-15 09:30 | CASEMGMT ---
DARREN DUGGAN DC Planning Assessment: Face to Face with patient for initial transition planning/care coordination assessment. Pt alert, sitting in the chair, oriented x4. DARREN DUGGAN introduced self and role at [facility], pt voices understanding and agreeable to participating in assessment with at chairside.? Care providers, pharmacy,?and demographics verified. ? Admitting Dx: postop pain, biliary leak PCP: Jesse Specialists: Rosangela Walton Pharmacy: [facility] Insurance: MMO Prescription Benefit:?Yes Living Will/HPOA: None LNOK: Cassandra Living Arrangements: Pt resides with her in a one story home with 4-5 steps to enter. Pt reports to be independent with ADLs including self care and household tasks. Transportation: pt drives and is able to drive is pt unable. DME/HHC/SNF: denies ? Plan: Pt plans to return home at discharge with spouse's support. Both deny any needs or concerns at this time. Will continue to monitor and assist with DC Planning needs as identified. Ila Tate RN CM
[2022-04-15] MEDS: Methylphenidate HCl 5 MG Tablet PO (10:07)
[2022-04-15] MEDS: traMADol 50 MG Tablet PO ×2 (10:08→21:19)
[2022-04-15] MEDS: proMETHazine 25 MG/ML Syringe 12.5 MG IM (10:08)
[2022-04-15] MEDS: buPROPion (XL) 300 MG TABLET.XL PO (10:14)
--- NOTE | 2022-04-15 10:14 | RAD_ITS ---
INDICATION: ABD PAIN EXAMINATION/TECHNIQUE: Images assigned to this order were provided in conjunction with a ERCP procedure performed in the operating room/procedural suite. Please see operative report for details. Fluoroscopic images: 6 Fluoroscopic time: 1 minute 28 seconds Cumulative dose: NA, mGym2; 18.5; mGy COMPARISON: No relevant comparisons available.. FINDINGS: There is documentation retrograde access to the lower ductal system. Apparent balloon sweep was performed, and placement of a biliary stent projecting in normal position. Refer to procedure note for further details. RAD/ERCP Biliary/Pancreas IMPRESSION: ERCP examination documented placement of a biliary stent in normal position. Electronically Signed: Paul Pandya MD at 17:30 EST ,
--- NOTE | 2022-04-15 12:34 | OP.CCLET_ITS ---
04/15/2022 Ronn Molina [address] [facility] [address] [place] [address] Re : ERCP procedure for Aidemaryam Francistcher Dear Dr. Molina This procedure was performed on Friday, April 15, 2022. My impressions and recommendations are as follows: Impressions : - A biliary sphincterotomy was performed. - One plastic stent was placed into the common bile duct. - A bile leak was found. Recommendations : - Return patient to hospital cook for ongoing care. My findings are described in the full procedure note, which is enclosed. If I can be of further assistance, please feel free to contact me at Doctor phone number(s): , Work: . Sincerely, Emigdio Lemos MD 04/15/2022 12:33:06 PM This report has been signed electronically.
--- NOTE | 2022-04-15 12:34 | OP.ERCP_ITS ---
Patient Name: Aide Mckeon Procedure Date: 04/15/2022 11:44 AM Date of : 1975 Age: 46 Procedure: ERCP Indications: Bile leak Providers: Emigdio Lemos MD Medicines: Monitored Anesthesia Care Patient Profile: This is a 46 year old female. Refer to note in patient chart for documentation of history and physical. Complications: No immediate complications. Procedure: Pre-Anesthesia Assessment: - Prior to the procedure, a History and Physical was performed, and patient medications and allergies were reviewed. The patient's tolerance of previous anesthesia was also reviewed. The risks and benefits of the procedure and the sedation options and risks were discussed with the patient. All questions were answered, and informed consent was obtained. Prior Anticoagulants: The patient has taken no previous anticoagulant or antiplatelet agents. After reviewing the risks and benefits, the patient was deemed in satisfactory condition to undergo the procedure. After obtaining informed consent, the scope was passed under direct vision. Throughout the procedure, the patient's blood pressure, pulse, and oxygen saturations were monitored continuously. The Duodenoscope was introduced through the mouth, and advanced to the duodenum and used to inject contrast into the bile duct. The ERCP was accomplished without difficulty. The patient tolerated the procedure well. Scope In: 11:54:38 AM Scope Withdrawal Time 0 hours 0 minutes 1 second Scope Out: 12:17:22 PM Total Procedure Duration Time 0 hours 22 minutes 44 seconds Findings: A 0.035 inch x 260 cm straight Dreamwire was passed into the biliary tree. The sphincterotome was passed over the guidewire and the bile duct was then deeply cannulated. Contrast was injected. I personally interpreted the bile duct images. Biliary sphincterotomy was made with a monofilament sphincterotome using ERBE electrocautery. Balloon was placed into bile duct and cholanigiogram was performed. There was a bile leak from a small biliary radical into the gallbladder fossa. There was no post-sphincterotomy bleeding. One 10 Fr by 5 cm plastic stent with a single external flap and a single internal flap was placed into the common bile duct. Bile flowed through the stent. The stent was in good position. Impression: - A biliary sphincterotomy was performed. - One plastic stent was placed into the common bile duct. - A bile leak was found. Recommendation: - Return patient to hospital cook for ongoing care. Procedure Code(s): --- Professional --- 83498, Endoscopic retrograde cholangiopancreatography (ERCP); with placement of endoscopic stent into biliary or pancreatic duct, including pre- and post-dilation and guide wire passage, when performed, including sphincterotomy, when performed, each stent Diagnosis Code(s): --- Professional --- K83.9, Disease of biliary tract, unspecified K83.8, Other specified diseases of biliary tract CPT copyright 2017 [employer]. All rights reserved. The codes documented in this report are preliminary and upon mmi teacher review may be revised to meet current compliance requirements. Emigdio Lemos MD 04/15/2022 12:33:06 PM This report has been signed electronically. Number of Addenda: 0 Note Initiated On: 04/15/2022 11:44 AM
[2022-04-15 14:26] LABS: Color, Urine Yellow (Yellow); Glucose, Dipstick Normal (Normal); Ketone-Dipstick Negative (Negative); Leukocyte Esterase-Dipstick Negative /ul (Negative); Nitrite-Dipstick Negative (Negative); Occult Blood-Urine 10 /ul (Negative); Protein-Dipstick Negative (Negative); Specific Gravity, Urine 1.005 (1.002-1.030); Urine Bilirubin Dipstick Negative (Negative); Urine Clarity Clear (Clear); Urine Urobilinogen Normal (Normal)
[2022-04-15] MEDS: LORazepam 1 MG Tablet PO (21:19)
[2022-04-16] MEDS: Lactated Ringers 1,000 ML 100 ML IV (00:46)
[2022-04-16 01:34] VITALS: BP 102/55; PULSE 89; RESP 16; TEMP 37.2; O2SAT 96
[2022-04-16 06:49] LABS: Absolute Lymphocyte Count 2.19 X10^3/uL (0.83-4.51); Basophil# 0.03 X10^3/uL; Basophil% 0.3 % (0-1); Eosinophil# 0.12 X10^3/uL; Eosinophils% 1.3 % (0-5); Hematocrit 33.5 % (37-47); Lymphocyte # 2.19 X10^3/ul (0.83-4.51); Lymphocyte % 23.7 % (19-41); Mean Corp Hgb Conc 32.8 g/dL (32-36); Mean Corpuscular Hgb 29.7 pg (27.0-32.0); Mean Corpuscular Volume 90.5 fL (81-99); Monocyte# 0.85 X10^3/uL; Monocyte% 9.2 % (0-10); NRBC Flagged by Analyzer 0 % (0-5); Neutrophil # 5.99 X10^3/uL (2.7-7.7); Platelet Count 294 K/mm3 (150-450); RBC Distribution Width CV 12.2 % (11.6-14.6); RBC Distribution Width SD 40.7 fl (35.1-43.9); White Blood Count 9.2 K/mm3 (4.4-11.0)
--- NOTE | 2022-04-16 07:06 | PCM.PN.SRG ---
Subjective Subjective It is tremendously better. She states she feels 100%. Objective Data Objective Data Vital Signs: Vital Signs Temp Pulse Resp BP Pulse Ox O2 Del Method 99.0 F 89 16 102/55 L 96 Room Air 04/16/22 01:34 04/16/22 01:34 04/16/22 01:34 04/16/22 01:34 04/16/22 01:34 04/16/22 01:34 Oxygen Delivery Method Room Air Weight: 108 lb Body Mass Index (BMI) 19.7 Intake & Output: Intake and Output for Last 24 Hours 04/14/22 04/15/22 04/16/22 23:59 23:59 23:59 Intake Total 1000 / 1000 3680 / 3680 Balance 1000 / 1000 3680 / 3680 Lab / Micro Data Result Diagrams: 04/16/22 05:25 04/15/22 05:22 Labs: Laboratory Results - last 24 hr 04/15/22 01:15: Urine Color Yellow, Urine Clarity Clear, Urine pH 7.0, Ur Specific [place] 1.005, Urine Protein Negative, Urine Glucose (UA) Normal, Urine Ketones Negative, Urine Occult Blood 10 H, Urine Nitrite Negative, Urine Bilirubin Negative, Urine Urobilinogen Normal, Ur Leukocyte Esterase Negative 04/16/22 05:25: WBC 9.2, RBC 3.70 L, Hgb 11.0 L, Hct 33.5 L, MCV 90.5, MCH 29.7, MCHC 32.8, RDW Std Deviation 40.7, RDW Coeff of Jewell 12.2, Plt Count 294, MPV 9.0, Immature Gran % (Auto) 0.500, Neut % (Auto) 65.0, Lymph % (Auto) 23.7, [place] % (Auto) 9.2, Eos % (Auto) 1.3, Baso % (Auto) 0.3, Absolute Neuts (auto) 6.0, Absolute Lymphs (auto) 2.19, Nucleated RBC % 0 Radiography Diagnostic Testing: Radiology Impression Gallbladder Ultrasound 04/15/22 07:00 IMPRESSION: Mild postoperative perihepatic free fluid or ascites. Consider correlation with scintigraphy if there is clinical suspicion for bile leak. Mild hepatomegaly. Cholecystectomy with borderline intrahepatic biliary dilatation. Electronically Signed: Sue Darden MD at 9:58 EST , Endo Retro Cholangiopancreatogram 04/15/22 10:14 IMPRESSION: ERCP examination documented placement of a biliary stent in normal position. Electronically Signed: Pual Pandya MD at 17:30 EST , Physical Exam GI GI Narrative: Abdomen soft, nontender Assessment & Plan Assessment/Plan (1) Bile leak from gallbladder bed: PLAN: Bile leak from duct of fluoroscopic gallbladder bed. Symptoms resolved with Dr. Dominguez Lemos's ERCP with stent placement. Patient ready for discharge. Ankur Adames M.D., F.A.C.S.
--- NOTE | 2022-04-16 07:07 | EX.PCM.DISCH ---
Discharge Instructions Diet Discharge Diet: Light diet - advance as tolerated (if you have questions about your diet instructions, please talk to you doctor.) Activity May shower in (days): 1 Dressing / Incision Call your doctor if your incision/area has: Continuous Slow Oozing, Sudden Increased Bleeding, Increased Pain/ Swelling, Increased Redness and Foul Smelling Discharge Call your doctor if you observe: Fever of 101 or Higher Suture Line Care: Avoid Pulling/Pushing and Avoid Pinching/Bending Additional Dressing/Incision Instructions:: As per previous instructions. Follow-up as previously scheduled. Ankur Adames M.D., F.A.C.S. Follow Up Care Test Results: Resume previous discharge instructions and diet Plan follow-up with Dr. Dominguez Lemos approximately 6 weeks Continue with your scheduled office follow-up appointment with myself Ankur Adames Discharge Plan Admission Admit Date/Time: 04/15/22 07:00 Attending Provider: Ankur Adames Primary Care Provider: Ronn Molina Discharge Orders/Prescriptions Prescriptions: No Action tramadol 50 mg tablet 50 mg PO BID methylphenidate HCl 5 mg tablet 5 mg PO QAM bupropion HCl 300 mg tablet extended release 24 hr 300 mg PO QAM hydrocodone-acetaminophen 5-325 mg tablet 1 tab PO Q6H PRN (Reason: pain) 2 Days Qty: 5 0RF Referrals / Follow Up: Ronn Molina MD [Primary Care Provider] -
[2022-04-16 07:17] LABS: ALB/GLOB Ratio 0.8 RATIO (0.9-2.4); AST(SGOT) 102 U/L (15-37); Alanine Aminotransfer ALT/SGPT 145 U/L (13-56); Albumin, Serum 2.5 g/dL (3.2-5.0); Alkaline Phosphatase 137 U/L (45-117); Anion Gap 6 (5-15); BUN 7 mg/dL (7-18); BUN/Creat Ratio 13.3 RATIO (10-20); Calcium,Total 8.3 mg/dL (8.5-10.1); Chloride 108 mmol/L (98-107); Creatinine, Serum 0.53 mg/dL (0.55-1.02); EST Glomerular Filtration Rate 132 mL/min (>60); Est Glom Filt Rate - Afr Amer 159 mL/min (>60); Estimated Creatinine Clearance 100.39 ml/min; Glucose 93 mg/dL (74-106); Lipase 100 U/L (73-393); Potassium 3.8 mmol/L (3.5-5.1); Protein, Total 5.5 g/dL (6.4-8.2); Sodium Level 141 mmol/L (136-145)
--- NOTE | 2022-04-16 07:30 | PCM.DC.SUM ---
Providers Date of Admission: 04/15/22 Primary Care Physician: Dr. Ronn Molina MD Reason For Visit: POSTOP PAIN Diagnosis Discharge Diagnosis (1) Bile leak from gallbladder bed: Status: Acute Code(s): K83.8 - Other specified diseases of biliary tract Plan: Bile leak from duct of fluoroscopic gallbladder bed. Symptoms resolved with Dr. Dominguez Lemos's ERCP with stent placement. Patient ready for discharge. Ankur Adames M.D., F.A.C.S. Medications at Discharge Home Medications bupropion HCl 300 mg 24 hr tablet, extended release 300 mg PO QAM 02/09/22 methylphenidate HCl 5 mg tablet 5 mg PO QAM 02/09/22 tramadol 50 mg tablet 50 mg PO BID 02/09/22 hydrocodone-acetaminophen 5-325mg 5mg-325mg 1 tab PO Q6H PRN pain 2 days #5 tabs 04/11/22 Hospital Course Summary of Care Provided Hospital Course: The patient was readmitted status post laparoscopic cholecystectomy with cute onset of abdominal pain. Initially CT scan laboratory was not remarkable. Follow-up attention however demonstrated slight elevation in liver function tests in some mild fluid noted on right upper quadrant ultrasound. I consulted Dr. Dominguez Lemos who performed ERCP with biliary stent. A small ductal structure in the bed of the gallbladder consistent with a duct of Luschka was noted to be leaking. With placement of the stent the patient's symptoms dramatically resolved. Weight / BMI Weight Weight: 108 lb Body Mass Index (BMI) 19.7 ABG / Lab / Microbiology Data Result Diagrams: 04/16/22 05:25 04/16/22 05:25 Laboratory: Laboratory Results - last 24 hr 04/15/22 01:15: Urine Color Yellow, Urine Clarity Clear, Urine pH 7.0, Ur Specific [place] 1.005, Urine Protein Negative, Urine Glucose (UA) Normal, Urine Ketones Negative, Urine Occult Blood 10 H, Urine Nitrite Negative, Urine Bilirubin Negative, Urine Urobilinogen Normal, Ur Leukocyte Esterase Negative 04/16/22 05:25: WBC 9.2, RBC 3.70 L, Hgb 11.0 L, Hct 33.5 L, MCV 90.5, MCH 29.7, MCHC 32.8, RDW Std Deviation 40.7, RDW Coeff of Jewell 12.2, Plt Count 294, MPV 9.0, Immature Gran % (Auto) 0.500, Neut % (Auto) 65.0, Lymph % (Auto) 23.7, [place] % (Auto) 9.2, Eos % (Auto) 1.3, Baso % (Auto) 0.3, Absolute Neuts (auto) 6.0, Absolute Lymphs (auto) 2.19, Nucleated RBC % 0 04/16/22 05:25: Sodium 141, Potassium 3.8, Chloride 108 H, Carbon Dioxide 27.0, Anion Gap 6, BUN 7, Creatinine 0.53 L, Estim Creat Clear Calc 100.39, Est GFR (MDRD) Af Amer 159, Est GFR (MDRD) Non-Af 132, BUN/Creatinine Ratio 13.3, Glucose 93, Calcium 8.3 L, Total Bilirubin 0.70, AST 102 H, ALT 145 H, Alkaline Phosphatase 137 H, Total Protein 5.5 L, Albumin 2.5 L, Globulin 3.0, Albumin/Globulin Ratio 0.8 L, Lipase 100 Radiography Diagnostic Testing: Radiology Impression Gallbladder Ultrasound 04/15/22 07:00 IMPRESSION: Mild postoperative perihepatic free fluid or ascites. Consider correlation with scintigraphy if there is clinical suspicion for bile leak. Mild hepatomegaly. Cholecystectomy with borderline intrahepatic biliary dilatation. Electronically Signed: Sue Darden MD at 9:58 EST , Endo Retro Cholangiopancreatogram 04/15/22 10:14 IMPRESSION: ERCP examination documented placement of a biliary stent in normal position. Electronically Signed: Paul Pandya MD at 17:30 EST , D/C Instructions Discharge Diet: Light diet - advance as tolerated (if you have questions about your diet instructions, please talk to you doctor.) May shower in (days): 1 Call your doctor if your incision/area has: Continuous Slow Oozing, Sudden Increased Bleeding, Increased Pain/ Swelling, Increased Redness and Foul Smelling Discharge Call your doctor if you observe: Fever of 101 or Higher Suture Line Care: Avoid Pulling/Pushing and Avoid Pinching/Bending Additional Dressing/Incision Instructions: As per previous instructions. Follow-up as previously scheduled. Ankur Adames M.D., F.A.C.S. Meaningful Use Info Meaningful Use Diagnoses (Choose all that apply): None applicable Discharge Plan Admission Admit Date/Time: 04/15/22 07:00 Primary Reason for Your Visit: Duct of Luschka bile leak Attending Provider: Ankur Adames Primary Care Provider: Ronn Molina Discharge Orders/Prescriptions Prescriptions: Continued tramadol 50 mg tablet 50 mg PO BID methylphenidate HCl 5 mg tablet 5 mg PO QAM bupropion HCl 300 mg tablet extended release 24 hr 300 mg PO QAM hydrocodone-acetaminophen 5-325 mg tablet 1 tab PO Q6H PRN (Reason: pain) 2 Days Qty: 5 0RF Referrals / Follow Up: Ronn Molina MD [Primary Care Provider] - Disposition Disposition (needs filled in before D/C Order can be placed): Home, Self Care
[2022-04-16 08:37] VITALS: BP 122/71; PULSE 70; RESP 18; TEMP 36.9; O2SAT 98
== END 2022-04-16 08:05 | disposition home or self-care (01) | DRG 418 ==
LOC: ED 13:10 → MS3 13:22
PROVIDERS: Surgery; Admitting Provider Surgery; Emergency Provider Emergency Medicine; PCP Family Medicine; Visit Provider Surgery
PROC: 0FHB8DZ Insertion of Intraluminal Device into Hepatobiliary Duct, Via Natural or Artificial Opening Endoscopic (ICD-10-PCS; CPT 43260; principal; 2022-04-15 13:30)
DX: K80.10 Calculus of gallbladder with chronic cholecystitis without obstruction (principal); K91.89 Other postprocedural complications and disorders of digestive system; K83.8 Other specified diseases of biliary tract; K29.50 Unspecified chronic gastritis without bleeding; D12.8 Benign neoplasm of rectum; K20.90 Esophagitis, unspecified without bleeding; F41.9 Anxiety disorder, unspecified; K40.90 Unilateral inguinal hernia, without obstruction or gangrene, not specified as recurrent; R10.9 Unspecified abdominal pain; Z90.49 Acquired absence of other specified parts of digestive tract; R63.4 Abnormal weight loss; R16.0 Hepatomegaly, not elsewhere classified; N83.202 Unspecified ovarian cyst, left side
CPT/HCPCS: 36415; 71275; 74177; 74300; 74330; 76000; 76705; 80048; 80053; 80076; 81002; 83690; 84484; 85025; 85027; 85610; 85730; 87086; 88304; 93005; 94668; 99252; 99285; J7030; J7120; Q9967; A4216; C1769; G0463; J2405

== ENCOUNTER 2022-04-19 17:31 | Emergency (ER) | payer OTHER, SELFPAY ==
[2022-04-19 17:32] VITALS: BP 136/76; PULSE 62; RESP 15; TEMP 36.7; O2SAT 99; BMI 24.7
--- NOTE | 2022-04-19 19:45 | CT_ITS ---
INDICATION: Abdominal pain EXAMINATION: CT ABDOMEN AND PELVIS WITH CONTRAST - CT Abdomen And Pelvis W/ Contrast Injection TECHNIQUE: Helically acquired images were obtained of the abdomen and pelvis following IV contrast. A radiation dose optimization technique was used for this scan. IV Contrast dosage and agent: 100 cc [id number] Oral contrast: None. COMPARISON: 04/14/2022 FINDINGS: LOWER CHEST: Lung bases are clear. No cardiomegaly or pericardial effusion. LIVER: Homogeneous. Interval near total resolution of the small collection anterior to the liver. GALLBLADDER AND BILIARY TREE: Postcholecystectomy with small interval increase in postsurgical changes in the gallbladder fossa. Interval placement of biliary stent with percent persistent mild intrahepatic biliary ductal dilatation. Trace pneumobilia. PANCREAS: No focal cystic or solid mass. SPLEEN: Normal size without focal cystic or solid mass. ADRENAL GLANDS: No nodules. KIDNEYS AND URETERS: Normal renal size and position. No hydronephrosis. PERITONEUM: Trace pelvic ascites. No free air. BOWEL: Normal appendix. No stomach or bowel distension. No focal inflammatory change. LYMPH NODES: No enlarged mesenteric or retroperitoneal lymph nodes. VESSELS: Aorta is non-dilated. URINARY BLADDER: Unremarkable. REPRODUCTIVE ORGANS: 2.0 cm left ovarian cyst with adjacent 1 cm follicle. ABDOMINAL WALL: No discrete abdominal or pelvic wall hernia. BONES: No acute or aggressive abnormality. CT/Abdomen/Pelvis W IV Cont ONLY IMPRESSION: Status post interval placement of biliary stent with small increase in postsurgical changes within the gallbladder fossa. Electronically Signed: Fausto Jose MD at 21:38 EST ,
--- NOTE | 2022-04-19 19:47 | EDS_ITS ---
HPI HPI - GI History of Present Illness Chief Complaint: Abd Pain Narrative Narrative: 46-year-old female past medical history of cholecystectomy approximately [address] Adames for cholelithiasis as an outpatient. She states that she had her surgery on Sunday of last week, and by Sunday, developed epigastric to right upper quadrant abdominal pain. She called EMS and was brought to the emergency department where CT was performed. They found out that she had a bile leak and accumulation of fluids. She states she was admitted to the hospital where Dr. Lemos had put in a biliary stent with endoscopy. She was released from the hospital on Sunday, 3 days ago. This evening, she began having intense pain in the epigastrium to right upper quadrant radiating to the back. She denies any fevers or chills. She states she had intense pain and c alled the surgeon on-call, Dr. Grigsby, who told her that she needed to return to the emergency department and have CT imaging performed again because she may have reaccumulation of more fluid. She presents with her for evaluation. She states that her pain is improving, but is wondering why she is still having continued pain as her surgery was last week. [facility] History Anxiety Encounter for screening for COVID-19 Nausea Non-smoker Wears glasses Weight loss Home Medications bupropion HCl 300 mg 24 hr tablet, extended release 300 mg PO QAM 02/09/22 [History Last Taken Unknown] methylphenidate HCl 5 mg tablet 5 mg PO QAM 02/09/22 [History Last Taken Unknown] tramadol 50 mg tablet 50 mg PO BID 02/09/22 [History Last Taken Unknown] hydrocodone-acetaminophen 5-325mg 5mg-325mg 1 tab PO Q6H PRN pain 2 days #5 tabs 04/11/22 [Rx Last Taken Unknown] oxycodone 5 mg tablet 5 mg PO Q6H PRN pain 3 days #12 tabs 04/19/22 [Rx Last Taken Unknown] Allergy/AdvReac Type Severity Reaction Status Date / Time No Known Allergies Allergy Verified 04/11/22 09:08 Family History Mother Arthritis Osteoporosis Father Cancer Bladder Surgical History History of cholecystectomy Hx of colonoscopy Social History Smoking Status: Never smoker alcohol intake: never substance use type: does not use ROS ROS ED ROS Narrative Constitutional: No fever, no chills. HEENT: No sore throat. No neck pain. No loss of vision. No rhinorrhea. Cardiovascular: No chest pain. No palpitations. No pedal edema. Respiratory: No cough, no shortness of breath. Abdominal: Epigastric to right upper quadrant abdominal pain radiating to back. No nausea. No vomiting. Genitourinary: No dysuria. No hematuria. Musculoskeletal: No myalgias. No arthralgias. Neurologic: No headaches. No dizziness. No lightheadedness. Skin: No rash. No change in color. Psychiatric: No depression. No anxiety. EXAM Physical Exam Narrative Exam Narrative: Afebrile. Vital signs noted. HEENT: Normocephalic. Atraumatic. PERRL, EOMI. Neck soft and supple. No point tenderness or step off. Cardiovascular: Regular rate and rhythm. No murmurs, rubs, or gallops appreciated. Respiratory: No tachypnea. Lungs clear to auscultation bilaterally. Gastrointestinal: Abdomen soft, mild tenderness to palpation epigastrium to right upper quadrant with normoactive bowel sounds. No rebound or guarding. Neurological: Awake. Alert. Nonfocal, nonlateralizing. Skin: No rash. Normal color. No pallor. Musculoskeletal: No pedal edema. Full range of motion extremities. Const Vital Signs: 04/19/22 17:32 04/19/22 20:00 Temperature 98.1 F Temperature Source Temporal Pulse Rate 62 74 Respiratory Rate 15 Blood Pressure 136/76 H 134/106 H Blood Pressure Mean 96 115 Pulse Ox 99 Oxygen Delivery Method Room Air MDM MDM MDM Narrative Medical decision making narrative: Comprehensive work-up was pursued. She was bolused normal saline 1 L intrave nously along with administered morphine for analgesia. CBC, CMP, lipase, and CT of the abdomen pelvis with IV contrast was obtained. I reviewed her laboratory work, she has an elevated white count of 17.3, but she states that it is almost chronic for her, hemoglobin normal at 13.0, platelet count normal at 435. CMP was obtained and reviewed. She has elevated LFTs, but she has in the past, with an alk phos of 356, ALT of 136, and AST of 222. These are only slightly above what they were the last time she had labs drawn. She has normal potassium of 3.7 and normal sodium of 139. Lipase normal at 93. CT of the abdomen and pelvis was obtained. I reviewed her imaging, and there is a bile duct stent in place. I reviewed the radiology report which shows slight increase in the postsurgical changes in the gallbladder fossa, and the noted biliary stent. I discussed patient with Dr. Grigsby with general surgery who has seen and evaluated the patient in the emergency department. He would like the patient to be written a prescription for oxycodone. I wrote her prescription for the next 3 days dispense #12 and she received 1 oxycodone 5 mg tablet here prior to discharge. He would also like a CBC and a CMP to be drawn on Sunday evening of next week, which was also written. I feel she be discharged safely home with follow-up to general surgery. Return instructions were reviewed. Disposition is discharged home in stable condition. Lab Data Attestation: I reviewed the patient's lab results. Labs: Laboratory Results - last 24 hr 04/19/22 04/19/22 19:45 19:45 WBC 17.3 H RBC 4.26 Hgb 13.0 Hct 37.8 MCV 88.7 MCH 30.5 MCHC 34.4 RDW Std Deviation 39.0 RDW Coeff of Jewell 12.1 Plt Count 435 MPV 8.8 Immature Gran % (Auto) 0.900 Neut % (Auto) 87.7 H Lymph % (Auto) 6.5 L [place] % (Auto) 4.4 Eos % (Auto) 0.2 Baso % (Auto) 0.3 Absolute Neuts (auto) 15.1 H Absolute Lymphs (auto) 1.12 Nucleated RBC % 0 Sodium 139 Potassium 3.7 Chloride 107 Carbon Dioxide 28.0 Anion Gap 4 L BUN 10 Creatinine 0.62 Estim Creat Clear Calc 87.76 Est GFR (MDRD) Af Amer 133 Est GFR (MDRD) Non-Af 110 BUN/Creatinine Ratio 16.2 Glucose 115 H Calcium 9.1 Total Bilirubin 0.70 AST 222 H ALT 136 H Alkaline Phosphatase 356 H Total Protein 7.1 Albumin 3.4 Globulin 3.7 Albumin/Globulin Ratio 0.9 Lipase 93 Radiography Diagnostic Testing: Clinical Impression(s) from Imaging Studies Abdomen/Pelvis CT 04/19/22 19:45 IMPRESSION: Status post interval placement of biliary stent with small increase in postsurgical changes within the gallbladder fossa. Electronically Signed: Fausto Jose MD at 21:38 EST Reading Location ID and State: [facility] / [place] Tel , Service support , Discharge Plan Triage Chief Complaint: Abd Pain ED Provider: Vladimir Ly Dx/Rx/DC Orders Clinical Impression: S/P laparoscopic cholecystectomy, Elevated LFTs, Postoperative abdominal pain, Postoperative bile leak Instructions: Managing Post-Op Pain at Home, ED Abdominal Pain Unkn Cause Fem, ED Pain, Acute, Uncertain Cause Prescriptions: New oxycodone 5 mg tablet 5 mg PO Q6H PRN (Reason: pain) 3 Days Qty: 12 0RF No Action tramadol 50 mg tablet 50 mg PO BID methylphenidate HCl 5 mg tablet 5 mg PO QAM bupropion HCl 300 mg tablet extended release 24 hr 300 mg PO QAM hydrocodone-acetaminophen 5-325 mg tablet 1 tab PO Q6H PRN (Reason: pain) 2 Days Qty: 5 0RF Primary Care Provider: Ronn Molina Referrals: Ronn Molina MD [Primary Care Provider] - Ankur Adames MD [Med Staff - Active Staff] - As soon as possible Disposition Disposition: Home, Self Care
[2022-04-19 20:00] VITALS: BP 134/106; PULSE 74
[2022-04-19] MEDS: Morphine 4 MG/ML Syringe IV ×2 (20:08→22:04)
[2022-04-19] MEDS: 0.9% Normal Saline 1,000 ML 1000 ML IV (20:08)
[2022-04-19] MEDS: Ondansetron 4 MG/2 ML Vial IV (20:08)
[2022-04-19 20:12] LABS: Absolute Lymphocyte Count 1.12 X10^3/uL (0.83-4.51); Absolute Neutrophil Count 15.1 X10^3/uL (2.0-7.7); Basophil# 0.06 X10^3/uL; Basophil% 0.3 % (0-1); Eosinophil# 0.03 X10^3/uL; Eosinophils% 0.2 % (0-5); Hematocrit 37.8 % (37-47); Lymphocyte # 1.12 X10^3/ul (0.83-4.51); Lymphocyte % 6.5 % (19-41); Mean Corp Hgb Conc 34.4 g/dL (32-36); Mean Corpuscular Hgb 30.5 pg (27.0-32.0); Mean Corpuscular Volume 88.7 fL (81-99); Mean Platelet Vol. 8.8 fl (6.2-12.0); Monocyte# 0.76 X10^3/uL; Monocyte% 4.4 % (0-10); NRBC Flagged by Analyzer 0 % (0-5); Neutrophil # 15.14 X10^3/uL (2.7-7.7); Neutrophil % 87.7 % (47-70); Platelet Count 435 K/mm3 (150-450); RBC Distribution Width CV 12.1 % (11.6-14.6); Red Blood Count 4.26 M/mm3 (4.2-5.4); White Blood Count 17.3 K/mm3 (4.4-11.0)
[2022-04-19 20:30] LABS: ALB/GLOB Ratio 0.9 RATIO (0.9-2.4); AST(SGOT) 222 U/L (15-37); Alanine Aminotransfer ALT/SGPT 136 U/L (13-56); Albumin, Serum 3.4 g/dL (3.2-5.0); Alkaline Phosphatase 356 U/L (45-117); Anion Gap 4 (5-15); BUN 10 mg/dL (7-18); BUN/Creat Ratio 16.2 RATIO (10-20); Calcium,Total 9.1 mg/dL (8.5-10.1); Chloride 107 mmol/L (98-107); Creatinine, Serum 0.62 mg/dL (0.55-1.02); EST Glomerular Filtration Rate 110 mL/min (>60); Est Glom Filt Rate - Afr Amer 133 mL/min (>60); Estimated Creatinine Clearance 87.76 ml/min; Globulin 3.7 g/dL (2.2-4.2); Glucose 115 mg/dL (74-106); Lipase 93 U/L (73-393); Potassium 3.7 mmol/L (3.5-5.1); Protein, Total 7.1 g/dL (6.4-8.2); Sodium Level 139 mmol/L (136-145)
--- NOTE | 2022-04-19 22:34 | PCM.HP.STD ---
HPI - General General Date of Service: 04/19/22 Chief Complaint: Recurrent abdominal pain HPI Narrative SHANNON GOLDSTEIN, is a 46 F who presents to [facility] after being directed by me to present to the ER for complaints of recurrent abdominal pain and a history of recent cholecystectomy complicated by bile leak and postprocedure ERCP with stenting. She underwent routine laboratories with CBC and CMP which were remarkable for leukocytosis, left shift, and elevation of her AST, ALT and alkaline phosphatase. Notably her bilirubin level was within normal limits as was her lipase level. CT of the abdomen pelvis was also obtained and showed mild increase of postsurgical changes and persistent dilation of biliary tree, but her interval biliary stent appeared to be in good position. At bedside patient is pacing the floor and talking with her spouse who is also present in the room. She states that her pain is much better than when she first felt its recurrence at 1630 this afternoon. Still, she is nervous and scared about the possibility that her pain from Sunday (the day she presented for her bile leak) could return. She notes that for much of today she had a good day and was encouraged by her lack of symptoms. She confesses that she is remain fearful of oral intake for the pain consequence that she may have to endure. She also confesses that she is recently constipated and required use of laxatives 2 days ago to have some loose bowel movements. She reports thereafter she did have some release of her discomfort. She also reports that she was advised she may have some gastritis as this was observed with her ERCP and that she has been taking famotidine to try to minimize this impact. [facility] Medical History Anxiety Encounter for screening for COVID-19 Nausea Non-smoker Wears glasses Weight loss Home Medications bupropion HCl 300 mg 24 hr tablet, extended release 300 mg PO QAM 02/09/22 [History Last Taken Unknown] methylphenidate HCl 5 mg tablet 5 mg PO QAM 02/09/22 [History Last Taken Unknown] tramadol 50 mg tablet 50 mg PO BID 02/09/22 [History Last Taken Unknown] hydrocodone-acetaminophen 5-325mg 5mg-325mg 1 tab PO Q6H PRN pain 2 days #5 tabs 04/11/22 [Rx Last Taken Unknown] Allergy/AdvReac Type Severity Reaction Status Date / Time No Known Allergies Allergy Verified 04/11/22 09:08 Family History Mother Arthritis Osteoporosis Father Cancer Bladder Surgical History History of cholecystectomy Hx of colonoscopy Social History Smoking Status: Never smoker alcohol intake: never substance use type: does not use ROS Constitutional Constitutional: Reports anorexia; Denies chills or fever(s) Gastrointestinal Gastrointestinal: Reports abdominal pain, constipation and diarrhea; Denies nausea or vomiting Vital Signs Vital Signs Vital Signs: 04/19/22 17:32 04/19/22 20:00 Temperature 98.1 F Temperature Source Temporal Pulse Rate 62 74 Respiratory Rate 15 Blood Pressure 136/76 H 134/106 H Blood Pressure Mean 96 115 Pulse Ox 99 Oxygen Delivery Method Room Air Weight Weight: 135 lb Body Mass Index (BMI) 24.7 Physical Exam Resp normal respiratory effort GI GI Narrative: Patient has significant ecchymosis?particularly to her umbilical port site area with a lesser degree at her remaining port sites. Her port sites remain covered with Steri-Strips. There is no underlying fluctuance or surrounding erythema. Patient's abdomen is soft and minimally tender across the left abdominal quadrants, right lower quadrant and even the majority of the right upper quadrant. Patient describes primary tenderness in the epigastrium, but this is not very reproducible with palpation. Results Lab / Micro Data Result Diagrams: 04/19/22 19:45 04/19/22 19:45 Labs: Laboratory Results - last 24 hr 04/19/22 19:45: WBC 17.3 H, RBC 4.26, Hgb 13.0, Hct 37.8, MCV 88.7, MCH 30.5, MCHC 34.4, RDW Std Deviation 39.0, RDW Coeff of Jewell 12.1, Plt Count 435, MPV 8.8, Immature Gran % (Auto) 0.900, Neut % (Auto) 87.7 H, Lymph % (Auto) 6.5 L, [place] % (Auto) 4.4, Eos % (Auto) 0.2, Baso % (Auto) 0.3, Absolute Neuts (auto) 15.1 H, Absolute Lymphs (auto) 1.12, Nucleated RBC % 0 04/19/22 19:45: Sodium 139, Potassium 3.7, Chloride 107, Carbon Dioxide 28.0, Anion Gap 4 L, BUN 10, Creatinine 0.62, Estim Creat Clear Calc 87.76, Est GFR (MDRD) Af Amer 133, Est GFR (MDRD) Non-Af 110, BUN/Creatinine Ratio 16.2, Glucose 115 H, Calcium 9.1, Total Bilirubin 0.70, AST 222 H, ALT 136 H, Alkaline Phosphatase 356 H, Total Protein 7.1, Albumin 3.4, Globulin 3.7, Albumin/Globulin Ratio 0.9, Lipase 93 Radiology Impression Abdomen/Pelvis CT 04/19/22 19:45 IMPRESSION: Status post interval placement of biliary stent with small increase in postsurgical changes within the gallbladder fossa. Electronically Signed: Fausto Jose MD at 21:38 EST , Assessment & Plan Assessment/Plan (1) S/P laparoscopic cholecystectomy: PLAN: This is a 46-year-old female status postcholecystectomy on 04/11/2022 and complicated by postoperative bile leak. She is a status post ERCP with common bile duct stent placement on 04/16/2022. She was overall recovering well at home until she experienced recurrence of her pain at 1630 today. ER work-up is notable for some elevation of her LFTs and a leukocytosis with left shift. CT is reassuring that she has not developed a biloma and there is no evidence of ongoing leak. As per radiology there is small interval increase in postsurgical changes within the gallbladder fossa but this increase is not enough to suggest a ongoing/unmanaged leak. And although her LFTs are somewhat elevated her biliary stent appears to be in good position. This information has been shared with patient and her spouse as a means of reassurance. At this point my differential includes possible irritation of the viscera from the local bile contamination, possible gastritis, possible constipation, possible post ERCP pancreatitis, other? Based on this I have recommended that we work towards a pain control strategy that would allow her to rest better at home and keep her scheduled follow-up with our office on Sunday, but plan for pre-clinic laboratory testing. Patient initially expressed reluctance with this suggestion and concerned that she may develop recurrent/intractable pain. At this I suggested we could admit her for IV pain control and repeat laboratory testing, but again reassured her that based on her exam and CT findings I did not find substantial cause for inpatient admission. Eventually patient agreed to trial alternating Tylenol, ibuprofen and then make use of as needed narcotic (while continuing to use famotidine for relief of gastritis symptoms and laxative to manage constipation). She is also encouraged to make use of a heating pad for additional comfort measure. She agrees to present ahead of her scheduled time for clinic visit for repeat CMP with CBC. The above plan was also communicated to emergency medicine. (2) Postoperative bile leak: Charges/Coding Visit Charges Office Visits / Consults: 67826 ED Visit; Moderate Severity
[2022-04-19] MEDS: oxyCODONE 5 MG Tablet PO (23:13)
[2022-04-19 23:16] VITALS: BP 128/87; PULSE 85; RESP 18; O2SAT 100
== END 2022-04-19 23:18 | disposition home or self-care (01) ==
PROVIDERS: Emergency Provider Emergency Medicine; PCP Family Medicine; Visit Provider Emergency Medicine
DX: K91.89 Other postprocedural complications and disorders of digestive system (principal); Z90.49 Acquired absence of other specified parts of digestive tract; R79.89 Other specified abnormal findings of blood chemistry; K83.8 Other specified diseases of biliary tract; Y83.8 Other surgical procedures as the cause of abnormal reaction of the patient, or of later complication, without mention of misadventure at the time of the procedure; R10.9 Unspecified abdominal pain
CPT/HCPCS: 74177; 80048; 80053; 83690; 85025; 99283; J7030; Q9967; A4216; J2405

== ENCOUNTER 2022-04-20 09:20 | Observation (INO) | payer OTHER, SELFPAY ==
[2022-04-20] VITALS (9 sets, daily range): BP systolic 112–135; BP diastolic 61–85; PULSE 67–91; RESP 16–18; TEMP 36.8–37.5; O2SAT 96–100; BMI 24.7
[2022-04-20 10:16] LABS: Absolute Lymphocyte Count 1.47 X10^3/uL (0.83-4.51); Absolute Neutrophil Count 11.7 X10^3/uL (2.0-7.7); Basophil# 0.05 X10^3/uL; Basophil% 0.3 % (0-1); Eosinophil# 0.03 X10^3/uL; Eosinophils% 0.2 % (0-5); Hematocrit 37.9 % (37-47); Hemoglobin 12.4 g/dL (12.0-15.0); Lymphocyte # 1.47 X10^3/ul (0.83-4.51); Lymphocyte % 9.9 % (19-41); Mean Corp Hgb Conc 32.7 g/dL (32-36); Mean Corpuscular Hgb 29.5 pg (27.0-32.0); Mean Corpuscular Volume 90.2 fL (81-99); Mean Platelet Vol. 8.8 fl (6.2-12.0); Monocyte% 10.1 % (0-10); NRBC Flagged by Analyzer 0 % (0-5); Neutrophil # 11.72 X10^3/uL (2.7-7.7); Neutrophil % 78.6 % (47-70); Platelet Count 416 K/mm3 (150-450); RBC Distribution Width CV 12.3 % (11.6-14.6); RBC Distribution Width SD 40.7 fl (35.1-43.9); White Blood Count 14.9 K/mm3 (4.4-11.0)
[2022-04-20] MEDS: 0.9% Normal Saline 1,000 ML 100 ML IV ×2 (10:19→18:14)
[2022-04-20 10:29] LABS: ALB/GLOB Ratio 0.9 RATIO (0.9-2.4); AST(SGOT) 117 U/L (15-37); Alanine Aminotransfer ALT/SGPT 171 U/L (13-56); Albumin, Serum 3.2 g/dL (3.2-5.0); Alkaline Phosphatase 317 U/L (45-117); Anion Gap 8 (5-15); BUN 8 mg/dL (7-18); BUN/Creat Ratio 13.7 RATIO (10-20); Calcium,Total 8.6 mg/dL (8.5-10.1); Chloride 106 mmol/L (98-107); Creatinine, Serum 0.58 mg/dL (0.55-1.02); EST Glomerular Filtration Rate 117 mL/min (>60); Est Glom Filt Rate - Afr Amer 142 mL/min (>60); Estimated Creatinine Clearance 93.82 ml/min; Globulin 3.5 g/dL (2.2-4.2); Glucose 102 mg/dL (74-106); Potassium 3.5 mmol/L (3.5-5.1); Protein, Total 6.7 g/dL (6.4-8.2); Sodium Level 141 mmol/L (136-145)
--- NOTE | 2022-04-20 10:40 | PCM.HP.BLA ---
History and Physical Date of Admission: 04/20/22 [facility] [address] [place] [address] OFFICE VISIT Date of Service:? 04/20/22 Intake Vital Signs ? 04/19/2316:32 04/20/2307:24 Height 5 ft 2 in ? BP ? 117/75 Blood Pressure Location ? Rt brachial Position ? Sitting Respiration ? 17 Pulse ? 74 Pulse Source ? Monitor Temp ? 97.1 F L Temp Source ? Temporal Pulse Oximetry (%) ? 100 Oxygen Delivery Method ? room air Intake Visit Reasons:?pain Chief Complaint: abdominal pain Is patient in pain?: Yes Allergies No Known Allergies Allergy (Verified 04/20/22 08:25) Medications bupropion HCl 300 mg 24 hr tablet, extended release 300 mg PO QAM 02/09/22 [History Confirmed 04/20/22] methylphenidate HCl 5 mg tablet 5 mg PO QAM PRN as needed at work 02/09/22 [History Confirmed 04/20/22] tramadol 50 mg tablet 50 mg PO BID PRN as needed per pt 02/09/22 [History Confirmed 04/20/22] oxycodone 5 mg tablet 5 mg PO Q6H PRN pain 3 days #12 tabs 04/19/22 [Rx Confirmed 04/20/22] PFSH Medical History? Anxiety Encounter for screening for COVID-19 Nausea Non-smoker Wears glasses Weight loss Surgical History? History of cholecystectomy Hx of colonoscopy Family History? Mother Arthritis OsteoporosisFather Cancer ?? ? Bladder Social History? Smoking Status:? Never smoker alcohol intake:? never substance use type:? does not use HPI HPI Surgical H&P: Yes HPI: Patient is a 46 y/o F I am seeing following an ED visit for abdominal pain. Dr. Adames performed a laparoscopic cholecystectomy with intraoperative cholangiogram on 04/11/22 as an outpatient. Patient tolerated the procedure well. On POD #3, patient presented to the ED with increased abdominal pain, difficulty breathing. On 04/15/22, patient's pain had increased. Suspicion for a bile leak was detected. Dr. Lemos performed an ERCP with stent placement on 04/15/22. Patient's pain had improved. Patient was discharged to home on Sunday 04/16. Patient states she was feeling well. She had a slight dull ache at discharge, however much less pain then when she came into the ED. Patient states over the last few days, her pain has been waxing and waning. She notes pain would be a dull ache at times followed by periods of intense pain that would radiate straight into the patient's mid back. Patient notes the pain intensified yesterday afternoon. She contacted the surgeon commissioning specialist, who recommended the patient to come to the ED for a CT scan to determine if the bile leak was worsening. Patient denies nausea, vomiting. She has had a poor appetite since surgery. She notes being more on the constipated side since surgery. She has attempted to take Dulcolax tablets which she has had some success with minimal stool output. Patient notes she has tried Tylenol and ibuprofen alternating without any relief. Patient states her pain last night was not as intense as Sunday's pain. Patient did have a CT scan of the abdomen/pelvis in the ED yesterday which demonstrated interval placement of biliary stent with small increase in postsurgical fluid in the gallbladder fossa. Trace pneumobilia. Persistent mild intrahepatic biliary duct dilatation noted as well. Patient WBC was 17.3 with left shift. Liver enzymes were elevated AST 222, Alt 136, and Alk phos 356. Bilirubin was 0.7. Patient was discharged to home and asked to follow-up in our office. Patient denies any fever since the procedure. ROS General General: Yes weight change; No appetite, fatigue, colon cancer, breast cancer or weakness Additional Details: weight loss; 20lbs in last 6 mos per pt HEENT HEENT: No difficulty swallowing, eye injury, eye surgery, swollen glands or hoarseness Endo Endocrine: No thyroid disease, diabetes mellitus, thyroid cancer, Hair loss, heat intolerance or cold intolerance Skin Skin: No rash or changing moles Breast Breast: No left breast lump, right breast lump, nipple discharge, breast pain, abnormal mammogram, abnormal US or breast enlargement Musc Musculoskeletal: Yes back problems and arthritis; No rheumatoid arthritis, gout or joint pain Cardio Cardiovascular: No murmur, pacemaker, heart disease, atrial fibrillation, high blood pressure, heart attack, heart stent, palpitations, shortness of breat with exertion or chest pain Psych Psychiatric: Yes anxiety; No depression or hearing voices Resp Respiratory: No shortness of breath, No sleep apnea, No cough, No COPD, No asthma, No emphysema and No wheezing Gastro Gastrointestinal: Yes abdominal pain, No nausea or vomiting, No diarrhea, No constipation, No blood in stool, No acid reflux, No hemorrhoids, No ulcers, No gallbladder problem and No black,tarry stools Additional Details: nausea last 6 wks Kasi Hematologic: No blood thinners, No blood disorders, No bleeding, No anemia and No blood clots Neuro Neurologic: No system reviewed and no additional complaints, except as documented, No as per HPI, No abnormal gait, No abnormal hearing, No abnormal movements, No abnormal speech, No behavioral changes, No burning sensations, No confusion, No convulsions, No disequilibrium, No dizziness, No localized weakness, No frequent falls, No headache(s), No lack of coordination, No loss of vision, No memory loss, No numbness, No other visual disturbances, No radicular pain, No restless legs, No sensory deficit, No syncope, No tingling, No tremor(s), No weakness and No other Exam Const General: cooperative, healthy appearing and no acute distress [facility] Head: normal to inspection Eyes General: appearance normal, both eyes and all related structures Neck Neck: normal visual inspection Neck mass: No Resp Effort & Inspection: normal respiratory effort Auscultation: clear to auscultation bilaterally Cardio Rate: regular rate Rhythm: regular rhythm GI Other: Abdomen- soft, tenderness with epigastric palpation. Positive guarding with epigastric palpation. Incisions c/d/i. Minimal amount of ecchymosis noted. No incisional drianage noted. Musc Cervical Spine: normal cervical lordosis Skin General: no rashes or lesions noted Neuro General: no focal motor deficits and CN's II-XI intact bilaterally Extrem General: normal to inspection Psych Appearance: grossly normal Affect: normal affect Assessment & Plan Assessment/Plan (1) Postoperative abdominal pain: PLAN: I have evaluated this patient in conjunction with Dr. Adames and Dr. Lemos. Plan will be to direct admit the patient to the hospital for observation for pain control. Dr. Adames will plan to perform an exploratory laparoscopy with drainage and JOB drain placement and possible ERCP with stent exchange by Dr. Lemos today. Procedure details, risks and benefits were discussed. We will plan to provided IV pain medication, IV hydration, and IV antiemetic. Keep patient NPO. Patient and her spouse have had the opportunity to ask and have questions answered. Patient verbally understands and agrees with the plan. ? ? (2) Postoperative bile leak: Charges/Coding Visit Charges Inpatient E&M: 93301 Init Hosp L1 (Post-op period)
--- NOTE | 2022-04-20 16:46 | OP.PCM_ITS ---
Report of Operation Date of Procedure: 04/20/22 Pre-Operative Diagnosis: Suspected right upper quadrant biloma Post-Operative Diagnosis: Acute inflammatory changes liver bed with adherent transverse colon. No biloma Surgery/Procedure Performed:: Diagnostic laparoscopy Description of Surgical Findings:: Timeout informed consent was obtained. 46-year-old female was taken to the operating room. She just received dosing of Zosyn. She underwent general endotracheal ovation esthesia. She was supine on the table. The abdomen sterilely prepped and draped. Superior and to the left of the umbilicus used a 5 mm Visiport technology to gain access to the abdomen. Was just beneath the omentum. The trocar was withdrawn until I was above the omentum. Hemostasis was intact. There was no bleeding. A 5 mm trocars placed in the epigastric area and one laterally in the right subcostal area inspection did not reveal any free bile. The transverse colon was densely adherent to the liver. I attempted some release but that was densely adherent there was as far as we could see down to the portal area. No bile whatsoever was identified. Palpation through the colon failed to reveal any mass effect. Satsuma that the inflammatory changes i dentified on CT were consistent with the hepatic bed inflammation and the adherent transverse colon. At this point I felt that further inspection would lead to potential damage. The abdomen was allowed to deflate of the CO2. Trocars removed wounds were closed with interrupted 4-0 Monocryl Steri-Strips Telfa OpSite dressings applied. Sponge and instrument and needle counts were reported the surgeon to be correct. She was taken to the recovery room in satisfied condition. Ankur Adames M.D., F.A.C.S. Surgeon: Ankur Adames b2b managed service sales exec: Emigdio Lemos Type of Anesthesia: General and Local Anesthesiologist: Osvaldo Rosenthal
[2022-04-20] MEDS: oxyCODONE 5 MG Tablet PO (18:12)
[2022-04-21 03:26] VITALS: BP 121/49; PULSE 68; RESP 16; TEMP 36.8; O2SAT 100
[2022-04-21] MEDS: 0.9% Saline Lock 10 ML Syringe IV (05:32)
[2022-04-21 05:35] LABS: Absolute Lymphocyte Count 1.14 X10^3/uL (0.83-4.51); Absolute Neutrophil Count 7.7 X10^3/uL (2.0-7.7); Basophil# 0.03 X10^3/uL; Basophil% 0.3 % (0-1); Eosinophil# 0.01 X10^3/uL; Eosinophils% 0.1 % (0-5); Hematocrit 33.6 % (37-47); Hemoglobin 11.1 g/dL (12.0-15.0); Lymphocyte # 1.14 X10^3/ul (0.83-4.51); Lymphocyte % 11.5 % (19-41); Mean Corpuscular Hgb 30.2 pg (27.0-32.0); Mean Corpuscular Volume 91.3 fL (81-99); Mean Platelet Vol. 9.1 fl (6.2-12.0); Monocyte# 0.99 X10^3/uL; NRBC Flagged by Analyzer 0 % (0-5); Neutrophil # 7.68 X10^3/uL (2.7-7.7); Neutrophil % 77.2 % (47-70); Platelet Count 373 K/mm3 (150-450); RBC Distribution Width CV 12.4 % (11.6-14.6); RBC Distribution Width SD 41.5 fl (35.1-43.9); Red Blood Count 3.68 M/mm3 (4.2-5.4); White Blood Count 9.9 K/mm3 (4.4-11.0)
--- NOTE | 2022-04-21 06:04 | PN.SURG_ITS ---
Subjective Subjective Once again the patient feels better. No particular complaints. No complaint of abdominal pain. Objective Data Objective Data Vital Signs: Vital Signs Temp Pulse Resp BP Pulse Ox O2 Del Method 98.3 F 68 16 121/49 H 100 Room Air 04/21/22 03:26 04/21/22 03:26 04/21/22 03:26 04/21/22 03:26 04/21/22 03:26 04/21/22 03:26 Oxygen Delivery Method Room Air Weight: 140 lb 10.479 oz Body Mass Index (BMI) 24.7 Intake & Output: Intake and Output for Last 24 Hours 04/19/22 04/20/22 04/21/22 23:59 23:59 23:59 Intake Total 1238.34 / 1238.34 50 50 Balance 1238.34 / 1238.34 Lab / Micro Data Result Diagrams: 04/21/22 04:44 04/20/22 09:52 Labs: Laboratory Results - last 24 hr 04/20/22 09:52: WBC 14.9 H, RBC 4.20, Hgb 12.4, Hct 37.9, MCV 90.2, MCH 29.5, MCHC 32.7, RDW Std Deviation 40.7, RDW Coeff of Jewell 12.3, Plt Count 416, MPV 8.8, Immature Gran % (Auto) 0.900, Neut % (Auto) 78.6 H, Lymph % (Auto) 9.9 L, Pacific % (Auto) 10.1 H, Eos % (Auto) 0.2, Baso % (Auto) 0.3, Absolute Neuts (auto) 11.7 H, Absolute Lymphs (auto) 1.47, Nucleated RBC % 0 04/20/22 09:52: Sodium 141, Potassium 3.5, Chloride 106, Carbon Dioxide 27.0, Anion Gap 8, BUN 8, Creatinine 0.58, Estim Creat Clear Calc 93.82, Est GFR (MDRD) Af Amer 142, Est GFR (MDRD) Non-Af 117, BUN/Creatinine Ratio 13.7, Glucose 102, Calcium 8.6, Total Bilirubin 0.60, AST 117 H, ALT 171 H, Alkaline Phosphatase 317 H, Total Protein 6.7, Albumin 3.2, Globulin 3.5, Albumin/Globulin Ratio 0.9 04/21/22 04:44: WBC 9.9, RBC 3.68 L, Hgb 11.1 L, Hct 33.6 L, MCV 91.3, MCH 30.2, MCHC 33.0, RDW Std Deviation 41.5, RDW Coeff of Jewell 12.4, Plt Count 373, MPV 9.1, Immature Gran % (Auto) 0.900, Neut % (Auto) 77.2 H, Lymph % (Auto) 11.5 L, Pacific % (Auto) 10.0, Eos % (Auto) 0.1, Baso % (Auto) 0.3, Absolute Neuts (auto) 7.7, Absolute Lymphs (auto) 1.14, Nucleated RBC % 0 Physical Exam GI GI Narrative: Soft, nontender, bowel sounds present Assessment & Plan Assessment/Plan (1) Elevated LFTs: PLAN: No active bile leak found at expiration yesterday. Resolution of abdominal pain once again as previously has occurred providing difficulty in diagnosis. Awaiting liver function tests. Plan discharge today on very brief course of oral antibiotics. The stent itself may be causing discomfort. Ankur Adames M.D., F.A.C.S.
--- NOTE | 2022-04-21 06:10 | DCINST_ITS ---
Discharge Instructions Procedure General Surgery Diet Discharge Diet: Light diet - advance as tolerated (if you have questions about your diet instructions, please talk to you doctor.) Activity Discharge Activity: May Not Drive (for 3-5 days or while taking narcotic pain medicine.) May shower in (days): 1 Lifting Restrictions: 10 pounds Dressing / Incision Call your doctor if your incision/area has: Continuous Slow Oozing, Sudden Increased Bleeding, Increased Pain/ Swelling, Increased Redness and Foul Smelling Discharge Call your doctor if you observe: Fever of 101 or Higher Suture Line Care: Avoid Pulling/Pushing and Avoid Pinching/Bending Additional Dressing/Incision Instructions:: Change or remove dressing in 4 days. Leave steri-strips in place for 1 week. Follow Up Care Please Follow Up With: Ankur Adames MD When: Call [phone] to make an appointment to be seen in about 10 days. Test Results: Test results from this visit will be discussed in further detail at your follow- up appointment, if applicable. Discharge Plan Admission Admit Date/Time: 04/20/22 09:20 Primary Reason for Your Visit: Abdominal pain Attending Provider: Emigdio Lemos Primary Care Provider: Ronn Molina Discharge Orders/Prescriptions Prescriptions: New hydrocodone-acetaminophen 5-325 mg tablet 1 tab PO Q6H PRN (Reason: pain) 3 Days Qty: 10 0RF amoxicillin-pot clavulanate 875-125 mg tablet 1 tab PO BID Qty: 6 0RF Continued tramadol 50 mg tablet 50 mg PO BID PRN (Reason: as needed per pt) methylphenidate HCl 5 mg tablet 5 mg PO QAM PRN (Reason: as needed at work) bupropion HCl 300 mg tablet extended release 24 hr 300 mg PO QAM Discontinued oxycodone 5 mg tablet 5 mg PO Q6H PRN (Reason: pain) 3 Days Qty: 12 0RF Referrals / Follow Up: Ronn Molina MD [Primary Care Provider] - Disposition Disposition (needs filled in before D/C Order can be placed): Home, Self Care
[2022-04-21 06:21] LABS: ALB/GLOB Ratio 0.8 RATIO (0.9-2.4); AST(SGOT) 54 U/L (15-37); Alanine Aminotransfer ALT/SGPT 118 U/L (13-56); Albumin, Serum 2.6 g/dL (3.2-5.0); Alkaline Phosphatase 252 U/L (45-117); Anion Gap 7 (5-15); BUN 7 mg/dL (7-18); BUN/Creat Ratio 14.2 RATIO (10-20); Calcium,Total 8.1 mg/dL (8.5-10.1); Chloride 110 mmol/L (98-107); Creatinine, Serum 0.49 mg/dL (0.55-1.02); EST Glomerular Filtration Rate 142 mL/min (>60); Est Glom Filt Rate - Afr Amer 172 mL/min (>60); Estimated Creatinine Clearance 111.05 ml/min; Globulin 3.2 g/dL (2.2-4.2); Glucose 103 mg/dL (74-106); Potassium 3.7 mmol/L (3.5-5.1); Protein, Total 5.8 g/dL (6.4-8.2); Sodium Level 141 mmol/L (136-145)
[2022-04-21 09:29] VITALS: BP 107/74; PULSE 70; RESP 16; TEMP 36.9; O2SAT 97
[2022-04-21 09:34] VITALS: O2SAT 97
== END 2022-04-21 10:00 | disposition home or self-care (01) ==
PROVIDERS: Physician Assistant; Surgery; Admitting Provider Surgery; PCP Family Medicine; Referring Provider Surgery; Visit Provider Surgery
PROC: (CPT 49320; principal; 2022-04-20 15:00)
DX: K75.9 Inflammatory liver disease, unspecified (principal); R79.89 Other specified abnormal findings of blood chemistry; R63.4 Abnormal weight loss; R11.0 Nausea; F41.9 Anxiety disorder, unspecified; Z79.899 Other long term (current) drug therapy
CPT/HCPCS: 49320; 00790; 36415; 80053; 85025; 94668; 96361; 96365; 96366; 99221; 99252; J7030; A4216; G0378; G0463; J2405; J3490

== ENCOUNTER → 2022-04-26 | Outpatient (CLI) | payer OTHER, SELFPAY ==
--- NOTE | 2022-04-26 09:28 | RAD_ITS ---
STUDY: X-RAY - ABDOMEN/PELVIS REASON FOR EXAM: Female, 46 years old. Abdominal distention TECHNIQUE: Single AP view of the abdomen / pelvis. COMPARISON: None. FINDINGS: Normal visualized lung bases. There is an unremarkable bowel gas pattern. There is no demonstrated free abdominal air. The common bile duct stent is seen in good position. A metallic clip is seen in the pelvis. No Normal soft tissue structures. Normal visualized osseous structures. RAD/Abd Inc Decub and/or Erect IMPRESSION: A biliary stent is seen within the common bile duct. A metallic staple is seen in the pelvis. Electronically Signed: Agulia Harris MD at 10:20 EST ,
== END | disposition home or self-care (01) ==
LOC: RAD 09:21
PROVIDERS: PCP Family Medicine; Referring Provider Physician Assistant; Visit Provider Physician Assistant
DX: K59.00 Constipation, unspecified (principal); R14.0 Abdominal distension (gaseous)
CPT/HCPCS: 74019

== ENCOUNTER → 2022-05-05 | Outpatient (CLI) | payer OTHER, SELFPAY ==
[2022-05-05 14:53] LABS: Absolute Lymphocyte Count 4.56 X10^3/uL (0.83-4.51); Absolute Neutrophil Count 5.4 X10^3/uL (2.0-7.7); Basophil# 0.17 X10^3/uL; Basophil% 1.5 % (0-1); Eosinophil# 0.63 X10^3/uL; Eosinophils% 5.5 % (0-5); Hematocrit 43.5 % (37-47); Hemoglobin 14.5 g/dL (12.0-15.0); Lymphocyte # 4.56 X10^3/ul (0.83-4.51); Lymphocyte % 39.8 % (19-41); Mean Corp Hgb Conc 33.3 g/dL (32-36); Mean Corpuscular Hgb 29.8 pg (27.0-32.0); Mean Corpuscular Volume 89.5 fL (81-99); Mean Platelet Vol. 8.4 fl (6.2-12.0); Monocyte# 0.73 X10^3/uL; Monocyte% 6.4 % (0-10); NRBC Flagged by Analyzer 0 % (0-5); Neutrophil # 5.35 X10^3/uL (2.7-7.7); Neutrophil % 46.5 % (47-70); Platelet Count 528 K/mm3 (150-450); RBC Distribution Width CV 12.1 % (11.6-14.6); RBC Distribution Width SD 39.5 fl (35.1-43.9); Red Blood Count 4.86 M/mm3 (4.2-5.4); White Blood Count 11.5 K/mm3 (4.4-11.0)
[2022-05-05 15:32] LABS: ALB/GLOB Ratio 1.1 RATIO (0.9-2.4); AST(SGOT) 23 U/L (15-37); Alanine Aminotransfer ALT/SGPT 33 U/L (13-56); Albumin, Serum 3.8 g/dL (3.2-5.0); Alkaline Phosphatase 139 U/L (45-117); Anion Gap 6 (5-15); BUN 10 mg/dL (7-18); BUN/Creat Ratio 13.3 RATIO (10-20); Calcium,Total 9.3 mg/dL (8.5-10.1); Chloride 106 mmol/L (98-107); Creatinine, Serum 0.75 mg/dL (0.55-1.02); EST Glomerular Filtration Rate 87 mL/min (>60); Est Glom Filt Rate - Afr Amer 105 mL/min (>60); Globulin 3.5 g/dL (2.2-4.2); Glucose 103 mg/dL (74-106); Lipase 123 U/L (73-393); Potassium 4.1 mmol/L (3.5-5.1); Protein, Total 7.3 g/dL (6.4-8.2); Sodium Level 141 mmol/L (136-145)
== END | disposition home or self-care (01) ==
LOC: LAB 14:35
PROVIDERS: PCP Family Medicine; Visit Provider Surgery
DX: R10.9 Unspecified abdominal pain (principal); R14.0 Abdominal distension (gaseous); Z90.49 Acquired absence of other specified parts of digestive tract
CPT/HCPCS: 36415; 80053; 83690; 85025

== ENCOUNTER 2022-06-06 09:08 | Day surgery (SDC) | payer OTHER, SELFPAY ==
--- NOTE | 2022-06-06 09:15 | EKG12_ITS ---
Test Reason : PRE OP Blood Pressure : / mmHG Vent. Rate : 066 BPM Atrial Rate : 066 BPM P-R Int : 154 ms QRS Dur : 080 ms QT Int : 396 ms P-R-T Axes : 052 040 044 degrees QTc Int : 415 ms Normal sinus rhythm Normal ECG Confirmed by SERGIO SMITH, KAYCEE ([id number]), editor map JARVIS CHOW ([id number]) on 06/08/2022 9:27:02 AM Referred By: Ronn Molina Confirmed By:KAYCEE HILL MD
[2022-06-06 09:32] LABS: Internal QC Validated? YES +Cl - CLEAR BKGD; Pregnancy, Urine Negative Negative
[2022-06-06 09:41] VITALS: BP 111/63; PULSE 70; RESP 18; TEMP 36.3; O2SAT 98; BMI 25.7
[2022-06-06] MEDS: Lactated Ringers 1,000 ML 15 ML IV (09:41)
--- NOTE | 2022-06-06 09:50 | H&P.OPEN ---
HPI - General HPI Narrative SHANNON GOLDSTEIN, is a 46 F who presents for stent removal. Patient had a bile leak after laparoscopic cholecystectomy. She has subsequent ERCP with stent placement. She reports she is feeling well other than some gastritis symptoms. She denies any nausea or vomiting or fevers or chills. [facility] Medical History (Updated 06/05/22 @ 09:24 by Phylicia Sullivan) Abdominal pain Anxiety Back pain Depression Encounter for screening for COVID-19 Gastritis Nausea Non-smoker Wears glasses Weight loss Home Medications bupropion HCl 300 mg 24 hr tablet, extended release 300 mg PO QAM 02/09/22 [History Last Taken Unknown] methylphenidate HCl 5 mg tablet 5 mg PO QAM PRN as needed at work 02/09/22 [History Last Taken Unknown] tramadol 50 mg tablet 50 mg PO BID PRN as needed per pt 02/09/22 [History Last Taken Unknown] sucralfate 1 gram tablet (Carafate) 1 g PO BID #60 tabs 05/19/22 [Rx Last Taken Unknown] pantoprazole 40 mg tablet,delayed release 40 mg PO DAILY #30 tabs 05/22/22 [Rx Last Taken 06/06/22] Allergy/AdvReac Type Severity Reaction Status Date / Time No Known Allergies Allergy Verified 06/06/22 09:40 Family History Mother Arthritis Osteoporosis Father Cancer Bladder Surgical History (Updated 06/05/22 @ 09:24 by Phylicia Sullivan) History of cholecystectomy Hx of colonoscopy Hx of surgical procedure Social History Smoking Status: Never smoker alcohol intake: never substance use type: does not use Past Medical/Surgical History Planned Operation Planned Operative Procedure/s: ERCP W/ STENT REMOVAL Previous Hospitalizations/Surgeries HX Hospitalizations: Yes (03/2022) Any Problems With Anesthesia: No You/Your Family Experience Fever (Hyperthermia) With Anes: No Cholinesterase deficiency: No Cardiovascular Hx Hypertension: No Respiratory Hx Sleep Apnea: No Hx Respiratory Tract Infection/Cold (presently): No Do You Snore Loudly (louder than talking or can be heard): No Do You Often Feel Tired/ Fatigued/ Sleepy Dring Daytime?: No Has Anyone Observed You Stop Breathing During Sleep?: No Result (for STOP score): Negative Smoking Status: Never smoker Neurological Does patient have nerve stimulator: No Reproduction : No Miscellaneous Recent Exposure to Contagious Disease: No Allergies No Known Allergies Allergy (Verified 06/06/22 09:40) Discharge Is Pt Admitted From a Custodial, or a Fpc: No After D/C, Where Do you Plan to Go: Return Home Vital Signs Vital Signs Vital Signs: 06/06/22 09:41 06/06/22 09:41 Temperature 97.4 F L Temperature Source Temporal Pulse Rate 70 Respiratory Rate 18 Respiratory Pattern Normal Blood Pressure 111/63 Blood Pressure Mean 79 Blood Pressure Source Monitor Blood Pressure Position Semi-Fowlers Blood Pressure Location Left Arm Pulse Ox 98 Oxygen Delivery Method Room Air Weight Weight: 141 lb Body Mass Index (BMI) 25.7 Physical Exam Const alert and oriented x3 HEENT normocephalic Eyes PERRL Resp normal respiratory effort and normal air movement Cardio regular rate and regular rhythm GI soft to palpation, non-tender and non-distended Extremity normal to inspection Assessment & Plan Assessment/Plan (1) Bile leak: PLAN: Patient had bile leak after laparoscopic cholecystectomy. Stent was placed and the patient's bile leak resolved. She is doing well at this time. She is here for ERCP with stent removal. I discussed the procedure in detail as well as the risks of bleeding, infection, perforation of the bile duct or bowel, pancreatitis. Patient understands the risks and is willing to proceed. I will perform a cholangiogram if there is a persistent leak I will replace a new stent. I explained endoscopy in detail to the patient. I explained the risks including but not limited to stroke or heart attack with anesthesia, perforation of the GI tract, bleeding, infection. I explained that any of these could necessitate further emergency surgery. The patient understands and all questions were answered sufficiently. The patient wishes to proceed with procedure. Emigdio Lemos MD Pager: [facility] [address] [place] [address] [place] [id number] Office: Surgery Risks - Colonoscopy Risks Include but are not Limited To: Risks include but are not limited to: Bleeding, perforation requiring further surgery, inability to complete colonoscopy requiring barium enema.
--- NOTE | 2022-06-06 10:05 | RAD_ITS ---
STUDY: ERCP REASON FOR EXAM: Female, 46 years old. PAIN FLUOROSCOPY TIME (if supplied): ( 2 minutes and 7 seconds. ) minutes/seconds. 17.81 mGy TECHNIQUE: An ERCP was performed by the ramp attendant. Imaging was submitted. COMPARISON: None. FINDINGS: Focal narrowing at the origin of the left intrahepatic biliary duct. RAD/ERCP Biliary Only IMPRESSION: Focal narrowing at the origin of the left intrahepatic biliary duct. Electronically Signed: Aguila Harris MD at 15:12 EDT ,
--- NOTE | 2022-06-06 10:45 | OP.ERCP_ITS ---
Patient Name: Aide Mckeon Procedure Date: 06/06/2022 9:57 AM Date of : 1975 Age: 46 Procedure: ERCP Indications: Bile leak, Stent removal Providers: Emigdio Lemos MD Medicines: General Anesthesia Patient Profile: This is a 46 year old female. Refer to note in patient chart for documentation of history and physical. Complications: No immediate complications. Estimated blood loss: Minimal. Procedure: Pre-Anesthesia Assessment: - Prior to the procedure, a History and Physical was performed, and patient medications and allergies were reviewed. The patient's tolerance of previous anesthesia was also reviewed. The risks and benefits of the procedure and the sedation options and risks were discussed with the patient. All questions were answered, and informed consent was obtained. Prior Anticoagulants: The patient has taken no previous anticoagulant or antiplatelet agents. After reviewing the risks and benefits, the patient was deemed in satisfactory condition to undergo the procedure. After obtaining informed consent, the scope was passed under direct vision. Throughout the procedure, the patient's blood pressure, pulse, and oxygen saturations were monitored continuously. The Duodenoscope was introduced through the mouth, and advanced to the duodenum and used to inject contrast into the bile duct. The ERCP was accomplished without difficulty. The patient tolerated the procedure well. Scope In: 10:27:04 AM Scope Out: 10:38:09 AM Total Procedure Duration Time 0 hours 11 minutes 5 seconds Findings: One stent was removed from the biliary tree using a snare. A 0.035 inch x 260 cm straight Dreamwire was passed into the biliary tree. To discover objects, the biliary tree was swept with a 12 mm balloon starting at the bifurcation. Nothing was found. The endoscope was withdrawn from the patient. Impression: - One stent was removed from the biliary tree. - The biliary tree was swept and nothing was found. Recommendation: - Discharge patient to home. - Resume previous diet. - Continue present medications. Procedure Code(s): --- Professional --- 87606, Endoscopic retrograde cholangiopancreatography (ERCP); with removal of foreign body(s) or stent(s) from biliary/pancreatic duct(s) Diagnosis Code(s): --- Professional --- Z46.59, Encounter for fitting and adjustment of other gastrointestinal appliance and device K83.8, Other specified diseases of biliary tract CPT copyright 2017 [employer]. All rights reserved. The codes documented in this report are preliminary and upon operating room surgical technologist review may be revised to meet current compliance requirements. Emigdio Lemos MD 06/06/2022 10:45:11 AM This report has been signed electronically. Number of Addenda: 0 Note Initiated On: 06/06/2022 9:57 AM
--- NOTE | 2022-06-06 10:46 | OP.CCLET_ITS ---
06/06/2022 Ronn Molina [address] [facility] [address] [place] [address] Re : ERCP procedure for Aide Mckeon Dear Dr. Molina This procedure was performed on Monday, June 06, 2022. My impressions and recommendations are as follows: Impressions : - One stent was removed from the biliary tree. - The biliary tree was swept and nothing was found. Recommendations : - Discharge patient to home. - Resume previous diet. - Continue present medications. My findings are described in the full procedure note, which is enclosed. If I can be of further assistance, please feel free to contact me at Doctor phone number(s): , Work: . Sincerely, Emigdio Lemos MD 06/06/2022 10:45:11 AM This report has been signed electronically.
[2022-06-06 10:52] VITALS: BP 100/52; BP 111/63; PULSE 58; RESP 16; TEMP 36.1; O2SAT 98
[2022-06-06 11:00] VITALS: BP 101/58; BP 111/63; PULSE 71; RESP 16; O2SAT 97
[2022-06-06 11:15] VITALS: BP 111/63; BP 116/63; PULSE 55; RESP 16; O2SAT 97
[2022-06-06 11:23] VITALS: BP 111/63; BP 116/65; PULSE 56; RESP 16; TEMP 36.1; O2SAT 98
[2022-06-06 11:46] VITALS: BP 111/63
== END 2022-06-06 11:55 | disposition home or self-care (01) ==
LOC: EN 09:09 → AC 09:11
PROVIDERS: Anesthesiology; PCP Family Medicine; Referring Provider Family Medicine; Visit Provider Surgery
PROC: (CPT 43260; principal; 2022-06-06 09:55)
DX: Z46.59 Encounter for fitting and adjustment of other gastrointestinal appliance and device (principal); Z90.49 Acquired absence of other specified parts of digestive tract; K83.8 Other specified diseases of biliary tract; F41.9 Anxiety disorder, unspecified; K29.70 Gastritis, unspecified, without bleeding
CPT/HCPCS: 43275; 74328; 76000; 81025; 93005; J7120; J2405

== ENCOUNTER → 2023-01-01 | Outpatient (CLI) | payer OTHER, SELFPAY ==
[2023-01-01 10:16] LABS: Erythrocyte Sedimentation Rate 7 mm/hr (0-30)
[2023-01-01 10:21] LABS: Absolute Lymphocyte Count 2.34 X10^3/uL (0.83-4.51); Absolute Neutrophil Count 3.4 X10^3/uL (2.0-7.7); Basophil# 0.06 X10^3/uL; Basophil% 0.9 % (0-1); Eosinophil# 0.09 X10^3/uL; Eosinophils% 1.4 % (0-5); Hematocrit 41.7 % (37-47); Hemoglobin 13.8 g/dL (12.0-15.0); Lymphocyte # 2.34 X10^3/ul (0.83-4.51); Lymphocyte % 36.1 % (19-41); Mean Corp Hgb Conc 33.1 g/dL (32-36); Mean Corpuscular Hgb 29.6 pg (27.0-32.0); Mean Corpuscular Volume 89.5 fL (81-99); Mean Platelet Vol. 8.8 fl (6.2-12.0); Monocyte# 0.55 X10^3/uL; Monocyte% 8.5 % (0-10); NRBC Flagged by Analyzer 0 % (0-5); Neutrophil # 3.43 X10^3/uL (2.7-7.7); Neutrophil % 52.8 % (47-70); Platelet Count 442 K/mm3 (150-450); RBC Distribution Width CV 11.9 % (11.6-14.6); RBC Distribution Width SD 38.9 fl (35.1-43.9); Red Blood Count 4.66 M/mm3 (4.2-5.4); White Blood Count 6.5 K/mm3 (4.4-11.0)
[2023-01-01 10:37] LABS: PTHIN 51.6 pg/mL (18.4-80.1)
[2023-01-01 10:47] LABS: Hemoglobin A1c 5.3 % (3.8-5.6)
[2023-01-01 11:11] LABS: ALB/GLOB Ratio 1.1 RATIO (0.9-2.4); AST(SGOT) 19 U/L (15-37); Alanine Aminotransfer ALT/SGPT 27 U/L (13-56); Albumin, Serum 3.6 g/dL (3.2-5.0); Alkaline Phosphatase 89 U/L (45-117); Anion Gap 4 (5-15); BUN 10 mg/dL (7-18); BUN/Creat Ratio 13.1 RATIO (10-20); CRP < 2.90 mg/L (0.0-3.0); Calcium,Total 8.8 mg/dL (8.5-10.1); Chloride 109 mmol/L (98-107); Creatinine, Serum 0.76 mg/dL (0.55-1.02); EST Glomerular Filtration Rate 85 mL/min (>60); Est Glom Filt Rate - Afr Amer 103 mL/min (>60); Follicle Stimulating Hormone 130.9 mIU/mL; Free T3 2.6 pg/mL (2.18-3.98); Globulin 3.3 g/dL (2.2-4.2); Glucose 107 mg/dL (74-106); Lipase 36 U/L (13-75); Luteinizing Hormone 66.6 mIU/mL; Potassium 3.7 mmol/L (3.5-5.1); Prealbumin 22.1 mg/dL (20.0-40.0); Protein, Total 6.9 g/dL (6.4-8.2); Sodium Level 140 mmol/L (136-145); T4 Free Direct 0.94 ng/dL (0.76-1.46); Thyroid Stim Hormone (TSH) 1.55 uIU/mL (0.358-3.74)
[2023-01-02 11:08] LABS: ANTINUCLEAR ANTIBODIES DIRECT Negative (Negative)
[2023-01-03 15:07] LABS: PROEL- A/G Ratio 1.7 (0.7-1.7); PROEL- Albumin 4.1 g/dL (2.9-4.4); PROEL- Alpha-1 Globulin 0.2 g/dL (0.0-0.4); PROEL- Alpha-2 Globulin 0.5 g/dL (0.4-1.0); PROEL- Beta Globulin 0.8 g/dL (0.7-1.3); PROEL- Gamma Globulin 0.9 g/dL (0.4-1.8); PROEL- Globulin, Total 2.4 g/dL (2.2-3.9); PROEL- TOTAL PROTEIN 6.5 g/dL (6.0-8.5); PROEL-M-Spike Not Observed g/dL (Not Observed)
== END | disposition home or self-care (01) ==
PROVIDERS: PCP Family Medicine; Referring Provider Family Medicine; Visit Provider Family Medicine
DX: R63.4 Abnormal weight loss (principal)
CPT/HCPCS: 36415; 80053; 83001; 83002; 83036; 83690; 83970; 84134; 84165; 84439; 84443; 84481; 85025; 85652; 86038; 86140

== ENCOUNTER → 2023-01-12 | Outpatient (CLI) | payer OTHER, SELFPAY ==
--- NOTE | 2023-01-12 10:16 | RAD_ITS ---
STUDY: X-RAY CHEST REASON FOR EXAM: Female, 47 years old. Weight loss, right upper chest pain TECHNIQUE: PA and lateral views of the chest. COMPARISON: None. FINDINGS: The lungs are clear and expanded. There is no demonstrated pleural abnormality. Normal size heart. Normal mediastinum and jocy. Normal visualized pulmonary arteries. Normal visualized aortic arch and descending thoracic aorta. There are mild degenerative changes of the visualized thoracic spine. Normal visualized ribs, clavicles, and shoulders. There is no demonstrated abnormality of the visualized soft tissue structures of the upper abdomen. RAD/Chest PA and Lateral IMPRESSION: Normal x-ray examination of the chest. Electronically Signed: Aguila Harris MD at 15:24 EDT ,
== END | disposition home or self-care (01) ==
LOC: MTRAD 10:02
PROVIDERS: PCP Family Medicine; Referring Provider Family Medicine; Visit Provider Family Medicine
DX: M89.8X1 Other specified disorders of bone, shoulder (principal)
CPT/HCPCS: 71046

== ENCOUNTER → 2023-01-18 | Outpatient (CLI) | payer OTHER, SELFPAY ==
--- NOTE | 2023-01-18 08:42 | US_ITS ---
EXAM: US PELVIS TRANSABDOMINAL AND TRANSVAGINAL, COMPLETE CLINICAL INDICATION: ENDOCRINE DISORDER unexplained weight loss. TECHNIQUE: Transabdominal and transvaginal pelvic ultrasound was performed with grayscale and color Doppler imaging. Transvaginal imaging was used for better evaluation of the endometrium and adnexa. COMPARISON: No relevant prior studies available. FINDINGS: UTERUS/CERVIX: Hypoechoic intramural mass of the anterior uterus measuring up to 2.3 cm. Multiple nabothian cysts are identified in the cervix. Anteverted. The uterus measures 7.2 x 4.4 x 4.1 cm. The endometrial stripe measures 0.9 cm in thickness. RIGHT OVARY: No significant abnormality. Blood flow is present in the right ovary. The right ovary measures 1.7 x 1.9 x 2.2 cm. LEFT OVARY: No significant abnormality. Blood flow is present in the left ovary. The left ovary measures 2.1 x 2.8 x 1.1 cm. FREE FLUID: None. BLADDER: Normal as visualized. Wall is normal thickness for degree of distention. US/Pelvic w/ Transvaginal IMPRESSION: 1. Uterine fibroid. 2. No additional abnormality is identified. Electronically Signed: Mikhail Todd DO at 23:11 EST ,
== END | disposition home or self-care (01) ==
LOC: OPUS 08:40
PROVIDERS: PCP Family Medicine; Referring Provider Family Medicine; Visit Provider Family Medicine
DX: E34.9 Endocrine disorder, unspecified (principal)
CPT/HCPCS: 76830; 76856

== ENCOUNTER → 2023-07-06 | Outpatient (CLI) | payer OTHER, SELFPAY ==
--- NOTE | 2023-07-06 12:47 | RAD_ITS ---
EXAM: XR RIGHT FOOT COMPLETE, 3 OR MORE VIEWS CLINICAL INDICATION: Right foot injury TECHNIQUE: Frontal, lateral and oblique views of the right foot. COMPARISON: No relevant prior studies available. FINDINGS: BONES/JOINTS: No acute fracture or subluxation. Narrowing and bony spurring of the first MTP joint. Plantar calcaneal spur noted. SOFT TISSUES: Normal. No soft tissue swelling or gas. No radiopaque foreign body. RAD/Foot min 3 Views IMPRESSION: No acute abnormality Electronically Signed: Pete Pro MD at 16:59 EDT ,
== END | disposition home or self-care (01) ==
PROVIDERS: PCP Family Medicine; Referring Provider Family Medicine; Visit Provider Family Medicine
DX: M79.673 Pain in unspecified foot (principal)
CPT/HCPCS: 73630

== ENCOUNTER → 2023-12-17 | Outpatient (CLI) | payer OTHER, SELFPAY ==
--- NOTE | 2023-12-17 07:09 | BI_ITS ---
MAMMOGRAPHY - BILATERAL SCREENING REASON FOR EXAM: Female, 48 years old. Routine annual screening examination. PERTINENT HISTORY: Non-contributory. TECHNIQUE: Digital bilateral breast francine (3D mammographic acquisition) in the CC and MLO projections. 2-D mediolateral oblique (MLO) and craniocaudad (CC) views of both breasts were obtained. CAD: Full Field Digital Mammography with Computer Added Detection was performed. COMPARISON: Comparison is made with prior study September 11, 2018. FINDINGS: Breast Composition: The breasts are extremely dense, which lowers the sensitivity of mammography. There are no dominant masses or suspicious calcifications. Stable small benign-appearing bilateral axillary lymph nodes. No other significant abnormalities are identified. There has been no significant change since the prior study. BI/SCRN MAMM (CAD)W/FRANCINE BILAT IMPRESSION: Stable bilateral screening mammogram. Yearly follow-up mammogram recommended. (A) ASSESSMENT CATEGORY: BIRADS Category 2: Benign. A letter regarding these results will be sent to the patient by the facility within 30 days. Approximately 10% of breast cancers are not detected by mammography. A normal mammogram should not delay biopsy of a clinically suspicious abnormality. [id number] Electronically Signed: Aguila Harris MD at 9:17 EDT ,
== END | disposition home or self-care (01) ==
PROVIDERS: PCP Family Medicine; Referring Provider Family Medicine; Visit Provider Family Medicine
DX: Z12.31 Encounter for screening mammogram for malignant neoplasm of breast (principal)
CPT/HCPCS: 77063; 77067

== ENCOUNTER → 2024-01-03 | Outpatient (CLI) | payer OTHER, SELFPAY | END | disposition home or self-care (01) | LOC: MRI 15:28 | PROVIDERS: PCP Family Medicine; Referring Provider Ophthalmology; Visit Provider Ophthalmology | DX: H53.10 Unspecified subjective visual disturbances (principal); R26.9 Unspecified abnormalities of gait and mobility ==

== ENCOUNTER → 2024-07-21 | Outpatient (CLI) | payer OTHER, SELFPAY ==
[2024-07-21 09:58] LABS: Absolute Lymphocyte Count 2.38 X10^3/uL (0.83-4.51); Absolute Neutrophil Count 4.5 X10^3/uL (2.0-7.7); Basophil# 0.07 X10^3/uL; Basophil% 0.9 % (0-1); Eosinophil# 0.12 X10^3/uL; Eosinophils% 1.6 % (0-5); Hematocrit 39.3 % (37-47); Hemoglobin 12.9 g/dL (12.0-15.0); Lymphocyte # 2.38 X10^3/ul (0.83-4.51); Lymphocyte % 31.2 % (19-41); Mean Corp Hgb Conc 32.8 g/dL (32-36); Mean Corpuscular Volume 91.4 fL (81-99); Mean Platelet Vol. 8.8 fl (6.2-12.0); Monocyte# 0.57 X10^3/uL; Monocyte% 7.5 % (0-10); NRBC Flagged by Analyzer 0 % (0-5); Neutrophil # 4.47 X10^3/uL (2.7-7.7); Neutrophil % 58.4 % (47-70); Platelet Count 437 K/mm3 (150-450); RBC Distribution Width CV 12.1 % (11.6-14.6); RBC Distribution Width SD 40.5 fl (35.1-43.9); White Blood Count 7.6 K/mm3 (4.4-11.0)
[2024-07-21 10:20] LABS: ALB/GLOB Ratio 1.7 RATIO (0.9-2.4); AST(SGOT) 20 U/L (<=31); Alanine Aminotransfer ALT/SGPT 24 U/L (<=34); Albumin, Serum 4.1 g/dL (3.5-5.0); Alkaline Phosphatase 82 U/L (35-104); Anion Gap 10 (5-15); BUN 14 mg/dL (4-19); BUN/Creat Ratio 17.2 RATIO (10-20); Calcium,Total 9.4 mg/dL (7.6-11.0); Chloride 104 mmol/L (98-108); Creatinine, Serum 0.79 mg/dL (0.70-1.20); EST Glomerular Filtration Rate 91 (>60); Free T3 2.7 pg/mL (2.18-3.98); Globulin 2.5 g/dL (2.2-4.2); Glucose 103 mg/dL (70-99); Luteinizing Hormone 65.3 mIU/mL; Potassium 4.3 mmol/L (3.3-5.1); Protein, Total 6.6 g/dL (5.9-8.4); Sodium Level 138 mmol/L (133-145); Total Bilirubin < 0.15 mg/dL (0.00-1.30)
== END | disposition home or self-care (01) ==
LOC: MFPLAB 08:55
PROVIDERS: PCP Family Medicine; Referring Provider Family Medicine; Visit Provider Family Medicine
DX: Z78.0 Asymptomatic menopausal state (principal); R53.83 Other fatigue
CPT/HCPCS: 36415; 80053; 83001; 83002; 84439; 84443; 84481; 85025

== ENCOUNTER → 2024-11-26 | Outpatient (CLI) | payer OTHER, SELFPAY ==
[2024-11-26 15:25] LABS: Hematocrit 43.7 % (37-47); Hemoglobin 14.5 g/dL (12.0-15.0); Immature Granulocytes Count 0.020 X10^3/uL (0.0-0.0); Mean Corp Hgb Conc 33.2 g/dL (32-36); Mean Corpuscular Volume 89.2 fL (81-99); Mean Platelet Vol. 9.4 fl (6.2-12.0); NRBC Flagged by Analyzer 0 % (0-5); Platelet Count 408 K/mm3 (150-450); RBC Distribution Width CV 12.2 % (11.6-14.6); RBC Distribution Width SD 39.7 fl (35.1-43.9); Red Blood Count 4.90 M/mm3 (4.2-5.4); White Blood Count 8.8 K/mm3 (4.4-11.0)
[2024-11-26 15:43] LABS: AST(SGOT) 21 U/L (<=31); Alanine Aminotransfer ALT/SGPT 15 U/L (<=34); Albumin, Serum 4.4 g/dL (3.5-5.0); Alkaline Phosphatase 68 U/L (35-104); Anion Gap 10 (5-15); BUN 13 mg/dL (4-19); BUN/Creat Ratio 13.8 RATIO (10-20); CRP < 3.00 mg/L (0.0-3.0); Calcium,Total 9.4 mg/dL (7.6-11.0); Carbon Dioxide 23.8 mmol/L (21.0-32.0); Chloride 106 mmol/L (98-108); Globulin 2.6 g/dL (2.2-4.2); Glucose 91 mg/dL (70-99); Potassium 4.4 mmol/L (3.3-5.1)
[2024-11-28 09:09] LABS: Lyme Scn Total Ab w/Rflx Negative (Negative)
[2024-11-28 12:09] LABS: ANTINUCLEAR ANTIBODIES DIRECT Negative (Negative)
== END | disposition home or self-care (01) ==
LOC: MFPLAB 11:26
PROVIDERS: PCP Family Medicine; Visit Provider Family Medicine
DX: R27.8 Other lack of coordination (principal)
CPT/HCPCS: 36415; 80053; 85025; 86038; 86140; 86618